=== PATIENT | female | born 2000 | race Caucasian/White ===

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

== ENCOUNTER 2021-06-05 19:44 | Emergency (ER) | payer OTHER, SELFPAY ==
--- NOTE | 2021-06-05 20:22 | RAD REPORT ---
EXAM DESCRIPTION: CT - Head C Spine Mpr Wo Con - 06/05/2021 8:10 pm CLINICAL HISTORY: Head and neck injury status post fall. Head and neck pain COMPARISON: None. TECHNIQUE: Computed axial tomography of the head and cervical spine was obtained. Sagittal and coronal reconstruction was performed. All CT scans are performed using dose optimization technique as appropriate and may include automated exposure control or mA/KV adjustment according to patient size. FINDINGS: An intracranial bleed is not seen. The ventricles are normal in caliber. An extra-axial fl uid collection is not noted.Fluid within the visualized sinuses and mastoids is not seen A cervical fracture is not visualized. No dislocation is noted. IMPRESSION: No acute intracranial abnormality is seen. A cervical fracture is not visualized. If the patient continues to have symptoms to suggest intracra nial /spinal cord pathology then MRI would be recommended
[2021-06-05] MEDS ORDERED: KETOROLAC 30 MG/ML INJ ONE (21:07)
--- NOTE | 2021-06-05 22:08 | EDPHYS ---
Physician Documentation [facility] Name: Florina Hernandez Age: 20 yrs Sex: Female : 2000 Arrival Date: 06/05/2021 Time: 19:47 Bed 4 Private MD: ED Physician Gray Haley HPI: 06/05 20:51 This 20 yrs old Female presents to ER via Wheelchair with complaints of Head Injury jr8 With LOC-Adult. 20:51 The patient or guardian reports a laceration, pain, tenderness. The complaints affect jr8 the right frontal area. Context of injury: The problem was sustained on a street or driveway, resulted from a fall, while running. Onset: The symptoms/episode began/occurred acutely, today. Associated signs and symptoms: Loss of consciousness: This patient experience a loss of consciousness, for 2 minute(s). Severity of symptoms: At their worst the symptoms were moderate, in the emergency department the symptoms have improved, mildly. The patient has not experienced similar symptoms in the past. The patient has not recently seen a physician. Patient stated that she was running around playing with friend. Tripped and fell landing on concrete. + LOC for approximately 2 min per patient and friend at bedside . Historical: - Allergies: 19:58 anesthetics "the gas kind"; sm5 19:58 PROPOFOL; sm5 - PMHx: 19:58 ADD/ADHD; Anxiety; Bipolar disorder; Depression; vaginal bleeding; sm5 - Immunization history: Last tetanus immunization: unknown. - Social history:: Smoking status: Reported history of juuling and/or vaping. ROS: 20:51 Eyes: Negative for injury, pain, redness, and discharge, ENT: Negative for injury, jr8 pain, and discharge, Neck: Negative for injury, pain, and swelling, Cardiovascular: Negative for chest pain, palpitations, and edema, Respiratory: Negative for shortness of breath, cough, wheezing, and pleuritic chest pain, Abdomen/GI: Negative for abdominal pain, nausea, vomiting, diarrhea, and constipation, Back: Negative for injury and pain, MS/Extremity: Negative for injury and deformity. 20:51 Skin: Positive for laceration(s). 20:51 Neuro: Positive for headache, loss of consciousness. Exam: 20:51 Eyes: Pupils equal round and reactive to light, extra-ocular motions intact. Lids and jr8 lashes normal. Conjunctiva and sclera are non-icteric and not injected. Cornea within normal limits. Periorbital areas with no swelling, redness, or edema. ENT: Nares patent. No nasal discharge, no septal abnormalities noted. Tympanic membranes are normal and external auditory canals are clear. Oropharynx with no redness, swelling, or masses, exudates, or evidence of obstruction, uvula midline. Mucous membranes moist. Neck: Trachea midline, no thyromegaly or masses palpated, and no cervical lymphadenopathy. Supple, full range of motion without nuchal rigidity, or vertebral point tenderness. No Meningismus. Cardiovascular: Regular rate and rhythm with a normal S1 and S2. No gallops, murmurs, or rubs. Normal PMI, no JVD. No pulse deficits. Respiratory: Lungs have equal breath sounds bilaterally, clear to auscultation and percussion. No rales, rhonchi or wheezes noted. No increased work of breathing, no retractions or nasal flaring. Abdomen/GI: Soft, non-tender, with normal bowel sounds. No distension or tympany. No guarding or rebound. No evidence of tenderness throughout. Back: No spinal tenderness. No costovertebral tenderness. Full range of motion. Skin: Warm, dry with normal turgor. Normal color with no rashes, no lesions, and no evidence of cellulitis. MS/ Extremity: Pulses equal, no cyanosis. Neurovascular intact. Full, normal range of motion. Neuro: Awake and alert, GCS 15, oriented to person, place, time, and situation. Cranial nerves II-XII grossly intact. Motor strength 5/5 in all extremities. Sensory grossly intact. Cerebellar exam normal. 20:51 Head/face: Noted is hematoma, that is mild, of the right frontal area, a laceration(s), that is superficial, that is linear, of the right frontal area, tenderness, that is moderate, of the right frontal area. Vital Signs: 19:57 BP 133 / 87; Pulse 96; Resp 13; Temp 98.1(TE); Pulse Ox 99% on R/A; Weight 50.35 kg as6 (R); Height 4 ft. 8 in. (142.24 cm) (R); Pain 6/10; 21:04 BP 119 / 96; Pulse 96; Resp 21 S; Pulse Ox 100% on R/A; as6 22:02 BP 116 / 71; Pulse 65; Resp 16 S; Pulse Ox 100% on R/A; as6 19:57 Body Mass Index 24.89 (50.35 kg, 142.24 cm) as6 Jatin Coma Score: 19:58 Eye Response: spontaneous(4). Verbal Response: oriented(5). Motor Response: obeys sm5 commands(6). Total: 15. 20:51 Eye Response: spontaneous(4). Verbal Response: oriented(5). Motor Response: obeys jr8 commands(6). Total: 15. Trauma Score (Adult): 19:58 Eye Response: spontaneous(1); Verbal Response: oriented(1); Motor Response: obeys sm5 commands(2); Systolic BP: > 89 mm Hg(4); Respiratory Rate: 10 to 29 per min(4); Jatin Score: 15; Trauma Score: 12 MDM: 19:56 Patient medically screened. jr8 22:08 Data reviewed: vital signs, nurses notes, radiologic studies, CT scan. Data jr8 interpreted: Pulse oximetry: on room air is 100 %. Interpretation: normal. Counseling: I had a detailed discussion with the patient and/or guardian regarding: the historical points, exam findings, and any diagnostic results supporting the discharge/admit diagnosis, radiology results, the need for outpatient follow up, a family practitioner, to return to the emergency department if symptoms worsen or persist or if there are any questions or concerns that arise at home. 22:08 ED course: Patient doing much better. No signs of concussion at this time. jr8 Hemodynamically stable. No acute findings on CT. Laceration superficial in nature. Wound care instructions given. Patient good with this and will come back if worse . 06/05 19:56 Order name: CT Head C Spine; Complete Time: 20:28 jr8 Administered Medications: 21:08 Drug: Ketorolac 30 mg Route: IM; Site: left ventrogluteal; as6 22:17 Follow up: Response: No adverse reaction; Marked relief of symptoms; Pain is decreased vc1 Disposition: 06/06 00:00 Co-signature as Attending Physician, Gray Haley MD I agree with the assessment and kdr plan of care. Disposition Summary: 06/05/21 22:08 Discharge Ordered Location: Home jr8 Problem: new jr8 Symptoms: have improved jr8 Condition: Stable jr8 Diagnosis - Superficial injury of scalp jr8 Followup: jr8 - With: Private Physician - When: 2 - 3 days - Reason: Wound Recheck, Recheck today's complaints, Continuance of care, Re-evaluation by your physician Discharge Instructions: - Discharge Summary Sheet jr8 - Head Injury, Adult jr8 - Wound Care, Adult jr8 Forms: - Medication Reconciliation Form jr8 - Thank You Letter jr8 - Antibiotic Education jr8 - Prescription Opioid Use jr8 Signatures: Dispatcher [employer] EDMS Gray Haley MD MD kdr Roszak, Josh, PA PA jr8 Gomez Mason RN RN as6 Sherlyn Alanis RN RN sm5 Ofelia Mi RN vc1 Corrections: (The following items were deleted from the chart) 06/05 22:09 20:51 Head/face: Noted is hematoma, that is mild, of the right frontal area, a jr8 laceration(s), that is linear, of the right frontal area, tenderness, that is moderate, of the right frontal area, jr8
--- NOTE | 2021-06-05 22:08 | ER ---
Nurse's Notes [facility] Name: Florina Hernandez Age: 20 yrs Sex: Female : 2000 Arrival Date: 06/05/2021 Time: 19:47 Bed 4 Private MD: Diagnosis: Superficial injury of scalp Presentation: 06/05 19:53 Chief complaint: Patient states: she was playing tag with her cousin, tripped and hit sm5 her head on the concrete, +LOC for 2 mins. denies n/v. pt bleeding from head. Care prior to arrival: None. Mechanism of Injury: Fall from standing position. Trauma event details: Injury occurred: at home. Injury occurred: June 05, 2021. 19:53 Acuity: MAAME 2 5 19:53 Method Of Arrival: Wheelchair [facility] 20:23 Coronavirus screen: At this time, the client does not indicate any symptoms associated as6 with coronavirus-19. Ebola Screen: No symptoms or risks identified at this time. Initial Sepsis Screen: Does the patient meet any 2 criteria? No. Patient's initial sepsis screen is negative. Does the patient have a suspected source of infection? No. Patient's initial sepsis screen is negative. Risk Assessment: Do you want to hurt yourself or someone else? Patient reports no desire to harm self or others. Onset of symptoms was June 05, 2021. Trauma Activation: Physician: ED Physician; Name: Sudha; Notified At: 19:53; Arrived At: Physician: General Surgeon; Name: ; Notified At: 19:53; Arrived At: Physician: Radiology; Name: ; Notified At: 19:53; Arrived At: Physician: Respiratory; Name: ; Notified At: 19:53; Arrived At: Physician: Lab; Name: ; Notified At: 19:53; Arrived At: Historical: - Allergies: 19:58 anesthetics "the gas kind"; sm5 19:58 PROPOFOL; sm5 - PMHx: 19:58 ADD/ADHD; Anxiety; Bipolar disorder; Depression; vaginal bleeding; sm5 - Immunization history: Last tetanus immunization: unknown. - Social history:: Smoking status: Reported history of juuling and/or vaping. Screenin:57 Tuberculosis screening: No symptoms or risk factors identified. sm5 20:23 Abuse screen: Denies threats or abuse. Denies injuries from another. Nutritional as6 screening: No deficits noted. Fall Risk Fall in past 12 months (25 points). Total Cuevas Fall Scale indicates Low Risk Score (25-44 pts). Fall prevention measures have been instituted. Frequent Obs/Assesments occuring As available Patient and Family Educated on Fall Prevention Program and strategies. Primary Survey: 19:56 NO uncontrolled hemorrhage observed. A: The patient is alert. Airway: patent. sm5 Breathing/Chest: Respiratory pattern: regular, Respiratory effort: spontaneous. Circulation: Heart tones present. Pulses: palpable right radial artery, right brachial artery, right femoral artery, right popliteal artery, right posterior tibial artery, left radial artery, left brachial artery, left femoral artery, left popliteal artery, bilateral radial, brachial, femoral, popliteal, posterior tibial, and dorsalis pedis arteries., left carotid pulse and right carotid pulse. Skin color: pink. Disability Alert. Exposure/Environment: All clothing and personal items were removed. There is no evidence of uncontrolled external bleeding. Obvious injury(ies) are noted at this time: dried blood to head and face A warming method has been applied: A warm blanket has been provided to the patient. 20:24 Reassessment Breathing/Chest Respiratory pattern Regular. as6 Assessment: 19:55 General: Appears in no apparent distress. Behavior is cooperative. Pain: Complains of sm5 pain in head. Neuro: Level of Consciousness is awake, alert, obeys commands, Oriented to person, place, time, situation. Cardiovascular: No deficits noted. Capillary refill < 3 seconds Patient's skin is warm and dry. Respiratory: Airway is patent Trachea midline Respiratory effort is even, unlabored. Injury Description: Head injury bleeding, had loss of consciousness. 21:00 Reassessment: Patient and/or family updated on plan of care and expected duration. Pain vc1 level reassessed. Patient is alert, oriented x 3, equal unlabored respirations, skin warm/dry/pink. Neuro: Level of Consciousness is awake, alert, obeys commands, Oriented to person, place, time, situation, Appropriate for age. 22:14 Reassessment: Left before signing discharge paperwork. vc1 Vital Signs: 19:57 BP 133 / 87; Pulse 96; Resp 13; Temp 98.1(TE); Pulse Ox 99% on R/A; Weight 50.35 kg as6 (R); Height 4 ft. 8 in. (142.24 cm) (R); Pain 6/10; 21:04 BP 119 / 96; Pulse 96; Resp 21 S; Pulse Ox 100% on R/A; as6 22:02 BP 116 / 71; Pulse 65; Resp 16 S; Pulse Ox 100% on R/A; as6 19:57 Body Mass Index 24.89 (50.35 kg, 142.24 cm) as6 Jatin Coma Score: 19:58 Eye Response: spontaneous(4). Verbal Response: oriented(5). Motor Response: obeys sm5 commands(6). Total: 15. 20:51 Eye Response: spontaneous(4). Verbal Response: oriented(5). Motor Response: obeys jr8 commands(6). Total: 15. Trauma Score (Adult): 19:58 Eye Response: spontaneous(1); Verbal Response: oriented(1); Motor Response: obeys sm5 commands(2); Systolic BP: > 89 mm Hg(4); Respiratory Rate: 10 to 29 per min(4); Jatin Score: 15; Trauma Score: 12 ED Course: 19:47 Patient arrived in ED. ja2 19:51 Gomez Mason, ANDERS is Primary Nurse. as6 19:52 Gray Haley MD is Attending Physician. kdr 19:55 Triage completed. sm5 19:56 Mckay Harris PA is PHCP. jr8 19:57 Patient has correct armband on for positive identification. Placed in gown. Bed in low sm5 position. Call light in reach. Side rails up X2. monitoring tech on. Pulse ox on. NIBP on. 20:10 CT Head C Spine In Process Unspecified. EDMS 20:23 Patient maintains SpO2 saturation greater than 95% on room air. Thermoregulation: warm as6 blanket given to patient. 21:05 Arm band placed on. as6 22:15 No provider procedures requiring assistance completed. Patient did not have IV access vc1 during this emergency room visit. Administered Medications: 21:08 Drug: Ketorolac 30 mg Route: IM; Site: left ventrogluteal; as6 22:17 Follow up: Response: No adverse reaction; Marked relief of symptoms; Pain is decreased vc1 Outcome: 22:08 Discharge ordered by MD. dominguez 22:15 Discharged to home ambulatory. vc1 22:15 Condition: good 22:15 Discharge instructions given to patient, Patient left before receiving discharge packet 22:16 Patient left the ED. vc1 Signatures: Dispatcher [employer] EDMS Gray Haley MD MD kdr Roszak, Josh, PA PA jr8 Aleena Matute Ashby, ANDERS RN as6 Sherlyn Alanis RN RN sm5 Ofelia Mi RN RN vc1
[2021-06-05 22:55] VITALS: TEMP 98.1
[2021-06-05 23:07] VITALS: O2SAT 100
[2021-06-05 23:08] VITALS: BP 116/71
== END 2021-06-05 22:16 | disposition home or self-care (01) ==
LOC: ER 19:44
DX: S01.01XA Laceration without foreign body of scalp, initial encounter (principal); W01.0XXA Fall on same level from slipping, tripping and stumbling without subsequent striking against object, initial encounter; Y93.02 Activity, running; Z88.4 Allergy status to anesthetic agent
CPT/HCPCS: 70450; 72125; 96372; 99284

== ENCOUNTER 2023-01-06 17:02 | Emergency (ER) | payer OTHER ==
--- OUTSIDE RECORDS SUMMARY | 2023-01-06 17:18 | XMS REPORT | Continuity of Care Document ---
:2000 Author Organization [facility] t Address [address] [facility] [place] [address] Care Team Providers Name Role Phone NAIN DE Primary Care Physician Unavailable EDITH GILES Attending Clinician Unavailable Tisha Edith CALDWELL Attending Clinician [phone] Doctor Unassigned, [place] Attending Clinician Unavailable KAEL SALES Attending Clinician Unavailable KAEL SALES Attending Clinician Unavailable Provider, Supriya Temp Attending Clinician Unavailable Emilee Valerio Attending Clinician Nain Hernandez Attending Clinician Meghna, Tito - Db Attending Clinician Unavailable NAIN DE Attending Clinician Unavailable Annalee Fang MD Attending Clinician Payers Payer Name Policy Type Policy Number Effective Date Expiration Date S ource [place]ICAID [place] [id number] 2022 00:00:00 Problems Condition Condition Condition Status Onset Resolution Last Treating Co mments Source Name Details Category Date Date Treatment Clinician Date Other Other Disease Active 2022- Univers general general 3-24 ity of counseling [place] and advice and advice 00 Me dical for for Branch contracept contracept rodo rodo management management Trichomona Trichomona Disease Active 2021-04 U nivers l l 0-03 ity of vulvovagin vulvovagin 00:[place] itis itis 00 Medical Branch Yeast Yeast Disease Active 2021-04 Univers infection infection 0-03 ity of 00:00: [place] [facility] Bacterial Bacterial Disease Active 2021-04 Uni vers vaginosis vaginosis 0-03 ity of 00:00: [place] [facility] Acute Acute Disease Active 2021-04 Univers cystitis cystitis 0-03 ity of without without 00:00: [place] hematuria hematuria 00 [facility] Branch Anxiety Anxiety Disease Active Univers and and 9 ity of depression depression 00:00: [place] [facility] [place] Hair loss Hair loss Disease Active Uni vers 01-13 ity of 00:00: [place] [facility] BV BV Disease Active Overview: Univer s (bacterial (bacterial 4-03 Formattin ity of vaginosis) vaginosis) 00:00: g of this [place] 00 note Medical might be Branch different from the original. 07/09/18 - s/p Flagyl Oligomenor Oligomenor Disease Active U nivers bam bam 3-25 ity of 00:00: [place] [facility] PCOS PCOS Disease Active Overview: Univer s (polycysti (polycysti 3-25 07/08/18 - ity of c ovarian c ovarian 00:00: DHEA-S [place] syndrome) syndrome) 00 350 Medi marisol mcg/dl Branch (elevated ). FSH 3.5 LH 6.3, free testoster one 18 (normal) and AMH 3.34. Will obtain a 17 OHP and androstei ndione. Repeat DHEA-S in 3 months. Uses oral Uses oral Disease Active Overview: Univers contracept contracept 3-25 Formattin ity of ion ion 00:00: g of this [place] 00 note Medical might be Branch different from the original. 07/08/18 - OCPs started for cycle control and contracep tion. PCOS PCOS Disease Active Overview: Univer s (polycysti (polycysti 3-25 Formattin ity of c ovarian c ovarian 00:00: g of this [place] syndrome) syndrome) 00 note Medi marisol might be Branch different from the original. 07/08/18 - DHEA-S 350 mcg/dl (elevated ). FSH 3.5 LH 6.3, free testoster one 18 (normal) and AMH 3.34. Will obtain a 17 OHP and androstei ndione. Repeat DHEA-S in 3 months. Ingested Ingested Disease Active 2017-04 Overview: Un brianda substance, substance, 0-07 Formattin ity of unknown unknown 00:00: g of this [place] drug, drug, 00 note Medical intentiona intentiona might be Branch l l different self-harm, self-harm, from the initial initial original. encounter encounter Took Zoloft and Nyquil Basic Basic Disease Active Univers learning learning 7-03 ity of disability disability 00:00[place] , , 00 Medical arithmetic arithmetic Br anch Pilonidal Pilonidal Disease Active Uni vers cyst cyst ity of [facility] History of History of Disease Active Overview : Univers early early Formattin ity of menarche menarche g of this [place] as note Medical might be Branch different from the original. Age 9 with symptoms of precociou s puberty Hirsutism Hirsutism Disease Active Uni vers ity of [facility] Depressed Depressed Disease Active Uni vers mood mood ity of [facility] BMI (body BMI (body Disease Active Overview: Univers mass mass Formattin ity of index), index), g of this [place] pediatric, pediatric, note Me dical greater greater might be Branch than or than or different equal to equal to from the 95% for 95% for original. age age truncal obesity Anesthesia Anesthesia Disease Active Overview : Univers complicati complicati Formattin ity of on on g of this [place] note Medical might be Branch different from the original. 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 and was "allergic " to general anesthesi a ADD ADD Disease Active Univers (attention (attention it y of deficit deficit [place] disorder) disorder) [facility] Branch ADD ADD Disease Active Univers (attention (attention it y of deficit deficit [place] disorder) disorder) [facility] Branch Allergies, Adverse Reactions, Alerts Allergy Allergy Status Severity Reaction(s) Onset Inactive Treating Comm ents Source Name Type Date Date Clinician Propofol Propensi Active Anaphylaxis Will nee d Univers ty to 5-16 records ity of adverse 00:00: from [place] reaction 00 [facility] Branch Adriel - but mother reports patient coded during induction at age 18 months and is allergic to and unknown anesthesi a medicatio n for general. Does not think it is malignant hyperther homar but we will request records. PROPOFOL DRUG Active High Anaphylaxis 2017- Uni vers INGREDI 5-16 ity of 00:00: [place] 00 Medical Branch Nitrous Propensi Active Anaphylaxis 0 Un brianda Oxide ty to 10-05 ity of adverse 00:00: [place] reaction 00 Medical s Branch NITROUS DRUG Active Anaphylaxis Univ ers OXIDE INGREDI 10-05 ity of 00:00: [place] 00 Medical Branch Family History Family Member Diagnosis Comments Start Date Stop Date Source Paternal Aunt Heart [facility] Paternal Diabetes [facility] Paternal Other - see [facility] Father Diabetes [facility] Father Neurological University o f [facility] Father Other - see [facility] Maternal ADHD [facility] Mother PCOS (polycystic Universi ty of ovary syndrome) [facility] [place] Mother Thyroid [facility] Other Mental illness [facility] Social History Social Habit Start Date Stop Date Quantity Comments Source History of Cigarette Smoker Universi ty of tobacco use [place] [facility] [place] History SDOH University o f Alcohol Frequency [facility] edical Branch History SDOH University o f Alcohol Std [place] [facility] Drinks Branch History SDOH University o f Alcohol Binge [facility] al Branch Exposure to 2022-08-28 2022-09-07 Not sure University of SARS-CoV-2 00:00:00 09:38:00 [facility] (event) Branch Alcohol intake 2022-01-16 2022-01-16 Current drinker Unive rsity of 00:00:00 00:00:00 of alcohol [facility] (finding) Branch Tobacco Comment 2022-01-13 2022-01-13 social / but used Un iversity of 00:00:00 00:00:00 to smoke everyday [facility] edical Branch Tobacco use and 2022-01-13 2022-01-13 Smokeless tobacco Un iversity of exposure 00:00:00 00:00:00 non-user [facility] Alcohol Comment 2017-08-29 2017-08-29 x1 in 8 grade Univer sity of 00:00:00 00:00:00 only, no recent [facility] ical [place] Sex Assigned At [birth year] Universit y of 00:00:00 00:00:00 [facility] Smoking Status Start Date Stop Date Source Occasional tobacco smoker 2022-01-13 00:[facility] Ordered Filled Start Stop Current Ordering Indication Dosage Frequency Signature Comments Components Source Medication Medication Date Date Medication? Clinician (SIG) Name Name fluconazole 2022- No [id number] 150mg Take 1 Univers (DIFLUCAN) 5-25 05-26 tablet by ity of 150 mg 00:00: 04:59 [place] tablet 00 :00 now for 1 Medical dose. Branch fluconazole 2022- No [id number] 150mg Take 1 Univers (DIFLUCAN) 5-25 05-26 tablet by ity of 150 mg 00:00: 04:59 [place] tablet 00 :00 now for 1 Medical dose. Branch fluconazole 2022- No [id number] 150mg Take 1 Univers (DIFLUCAN) 5-25 05-26 tablet by ity of 150 mg 00:00: 04:59 [place] tablet 00 :00 now for 1 Medical dose. Branch metroNIDAZO Yes [id number] 500mg Take 1 Univers LE 500 mg 3-27 tablet by ity o f tablet 00:00: mouth in [place] [address] the Medical morning Branch and 1 tablet in the evening. metroNIDAZO Yes [id number] 500mg Take 1 Univers LE 500 mg 3-27 tablet by ity o f tablet 00:00: mouth in [place] [address] the Medical morning Branch and 1 tablet in the evening. metroNIDAZO Yes [id number] 500mg Take 1 Univers LE 500 mg 3-27 tablet by ity o f tablet 00:00: mouth in [place] [address] the Medical morning Branch and 1 tablet in the evening. metroNIDAZO Yes [id number] 500mg Take 1 Univers LE 500 mg 3-27 tablet by ity o f tablet 00:00: mouth in [place] [address] the Medical morning Branch and 1 tablet in the evening. metroNIDAZO Yes [id number] 500mg Take 1 Univers LE 500 mg 3-27 tablet by ity o f tablet 00:00: mouth in [place] [address] the Medical morning [place] and 1 tablet in the evening. metroNIDAZO 2022- Yes [id number] 500mg Take 1 Univers LE 500 mg 3-27 tablet by ity o f tablet 00:00: mouth in [place] 00 the Medical morning Branch and 1 tablet in the evening. metroNIDAZO 2022-0 Yes [id number] 500mg Take 1 Univers LE 500 mg 3-27 tablet by ity o f tablet 00:00: mouth in [place] 00 the Medical morning Branch and 1 tablet in the evening. cefTRIAXone 2021-04- No [id number] 500mg Univers (ROCEPHIN) 0-03 10- ity of injection 05:00: 16:59 [place] 500 mg 00 :00 Medical Branch cefTRIAXone 2021-04- No [id number] 500mg Univers (ROCEPHIN) 0-03 10-03 ity of injection 05:00: 16:59 [place] 500 mg 00 :00 Medical Branch cefTRIAXone 2021-04- No [id number] 500mg Univers (ROCEPHIN) 0-03 10-03 ity of injection 05:00: 16:31 [place] 500 mg 00 :49 Medical Branch cefTRIAXone 2021-04- No [id number] 500mg Univers (ROCEPHIN) 0-03 10- ity of injection 05:00: 16:31 [place] 500 mg 00 :49 Medical Branch cefTRIAXone 2021-04- No [id number] 500mg Univers (ROCEPHIN) 0-03 10-03 ity of injection 05:00: 16:31 [place] 500 mg 00 :49 Medical Branch cefTRIAXone 2021-04- No [id number] 500mg Univers (ROCEPHIN) 0-03 10-03 ity of injection 05:00: 16:31 [place] 500 mg 00 :49 Medical Branch ampicillin 2021-04- No [id number] 500mg Take 1 Univers 500 mg 0-03 10-11 capsule by ity of capsule 00:00: 04:59 mouth [place] 00 :00 every 6 Medical (six) Branch hours for 7 days. ampicillin 2021-04- No [id number] 500mg Take 1 Univers 500 mg 0-03 10-11 capsule by ity of capsule 00:00: 04:59 mouth [place] 00 :00 every 6 Medical (six) Branch hours for 7 days. ampicillin 2021-04- No [id number] 500mg Take 1 Univers 500 mg 0-03 10-11 capsule by ity of capsule 00:00: 04:59 mouth [place] 00 :00 every 6 Medical (six) Branch hours for 7 days. ampicillin 2021-04- No [id number] 500mg Take 1 Univers 500 mg 0-03 10-11 capsule by ity of capsule 00:00: 04:59 mouth [place] 00 :00 every 6 Medical (six) Branch hours for 7 days. fluconazole 2021-04- No [id number] 150mg Take 1 Univers 150 mg 0-03 10-04 tablet by ity of tablet 00:00: 04:59 [place] 00 :00 now for 1 Medical dose. Branch fluconazole 2021-04- No [id number] 150mg Take 1 Univers 150 mg 0-03 10-04 tablet by ity of tablet 00:00: 04:59 [place] 00 :00 now for 1 Medical dose. Branch fluconazole 2021-04- No [id number] 150mg Take 1 Univers 150 mg 0-03 10-04 tablet by ity of tablet 00:00: 04:59 [place] 00 :00 now for 1 Medical dose. Branch fluconazole 2021-04- No [id number] 150mg Take 1 Univers 150 mg 0-03 10-04 tablet by ity of tablet 00:00: 04:59 [place] 00 :00 now for 1 Medical dose. Branch doxycycline 2021- No [id number] 100mg Take 1 Univers hyclate 100 9-30 10-15 tablet by it y of mg tablet 00:00: 04:59 mouth in [place] 00 :00 the Medical morning Branch and 1 tablet in the evening. Do all this for 14 days. metroNIDAZO 2021- No [id number] 500mg Take 1 Univers LE 500 mg 9-30 10-15 tablet by ity of tablet 00:00: 04:59 mouth in [place] 00 :00 the Medical morning Branch and 1 tablet in the evening. Do all this for 14 days. doxycycline 2021- No [id number] 100mg Take 1 Univers hyclate 100 9-30 10-15 tablet by it y of mg tablet 00:00: 04:59 mouth in [place] 00 :00 the Medical morning Branch and 1 tablet in the evening. Do all this for 14 days. metroNIDAZO 2021- No [id number] 500mg Take 1 Univers LE 500 mg 9-30 10-15 tablet by ity of tablet 00:00: 04:59 mouth in [place] 00 :00 the Medical morning Branch and 1 tablet in the evening. Do all this for 14 days. metroNIDAZO 2021- No [id number] 500mg Take 1 Univers LE 500 mg 9-30 10-15 tablet by ity of tablet 00:00: 04:59 mouth in [place] 00 :00 the Medical morning Branch and 1 tablet in the evening. Do all this for 14 days. metroNIDAZO 2021-2021- No [id number] 500mg Take 1 Univers LE 500 mg 9-30 10-15 tablet by ity of tablet 00:00: 04:59 mouth in [place] 00 :00 the Medical morning Branch and 1 tablet in the evening. Do all this for 14 days. metroNIDAZO 2021-2021- No [id number] 500mg Take 1 Univers LE 500 mg 9-30 10-15 tablet by ity of tablet 00:00: 04:59 mouth in [place] 00 :00 the Medical morning Branch and 1 tablet in the evening. Do all this for 14 days. metroNIDAZO 2021-2021- No [id number] 500mg Take 1 Univers LE 500 mg 9-30 10-15 tablet by ity of tablet 00:00: 04:59 mouth in [place] 00 :00 the Medical morning Branch and 1 tablet in the evening. Do all this for 14 days. doxycycline 2021-2021- No [id number] 100mg Take 1 Univers hyclate 100 9-30 10-03 tablet by it y of mg tablet 00:00: 00:00 mouth in [place] 00 :00 the Medical morning Branch and 1 tablet in the evening. Do all this for 14 days. doxycycline 2021-2021- No [id number] 100mg Take 1 Univers hyclate 100 9-30 10-03 tablet by it y of mg tablet 00:00: 00:00 mouth in [place] 00 :00 the Medical morning Branch and 1 tablet in the evening. Do all this for 14 days. doxycycline 2021-2021- No [id number] 100mg Take 1 Univers hyclate 100 9-30 10-03 tablet by it y of mg tablet 00:00: 00:00 mouth in [place] 00 :00 the Medical morning Branch and 1 tablet in the evening. Do all this for 14 days. doxycycline 2021-0 2022- No [id number] 100mg Take 1 Univers hyclate 100 9-30 10-03 tablet by it y of mg tablet 00:00: 00:00 mouth in [place] 00 :00 the Medical morning Branch and 1 tablet in the evening. Do all this for 14 days. lisdexamfet 2019-0 Yes [id number] 40mg Take 1 Univers amine 40 mg 9-23 capsule by it y of capsule 00:00: mouth [place] 00 every Medical morning. Branch lisdexamfet 2019-0 Yes [id number] 40mg Take 1 Univers amine 40 mg 9-23 capsule by it y of capsule 00:00: mouth [place] 00 every Medical morning. Branch lisdexamfet 2019-0 Yes [id number] 40mg Take 1 Univers amine 40 mg 9-23 capsule by it y of capsule 00:00: mouth [place] 00 every Medical morning. Branch lisdexamfet 2018-0 Yes [id number] 40mg Take 1 Univers amine 40 mg 9-23 capsule by it y of capsule 00:00: mouth [place] 00 every Medical morning. Branch lisdexamfet 2018-0 Yes [id number] 40mg Take 1 Univers amine 40 mg 9-23 capsule by it y of capsule 00:00: mouth [place] 00 every Medical morning. Branch lisdexamfet 2018-0 Yes [id number] 40mg Take 1 Univers amine 40 mg 9-23 capsule by it y of capsule 00:00: mouth [place] 00 every Medical morning. Branch lisdexamfet 2019-0 Yes [id number] 40mg Take 1 Univers amine 40 mg 9-23 capsule by it y of capsule 00:00: mouth [place] 00 every Medical morning. Branch lisdexamfet 2019-0 Yes [id number] 40mg Take 1 Univers amine 40 mg 9-23 capsule by it y of capsule 00:00: mouth [place] 00 every Medical morning. Branch lisdexamfet 2019-0 Yes [id number] 40mg Take 1 Univers amine 40 mg 9-23 capsule by it y of capsule 00:00: mouth [place] 00 every Medical morning. Branch lisdexamfet 2019-0 Yes [id number] 40mg Take 1 Univers amine 40 mg 9-23 capsule by it y of capsule 00:00: mouth [place] 00 every Medical morning. Branch lisdexamfet 2019-0 Yes [id number] 40mg Take 1 Univers amine 40 mg 9-23 capsule by it y of capsule 00:00: mouth [place] 00 every Medical morning. Branch lisdexamfet 2019-0 Yes [id number] 40mg Take 1 Univers amine 40 mg 9-23 capsule by it y of capsule 00:00: mouth [place] 00 every Medical morning. Branch lisdexamfet 2019-0 Yes [id number] 40mg Take 1 Univers amine 40 mg 9-23 capsule by it y of capsule 00:00: mouth [place] 00 every Medical morning. Branch lisdexamfet 2019-0 Yes [id number] 40mg Take 1 Univers amine 40 mg 9-23 capsule by it y of capsule 00:00: mouth [place] 00 every Medical morning. Branch lisdexamfet 2019-0 Yes [id number] 40mg Take 1 Univers amine 40 mg 9-23 capsule by it y of capsule 00:00: mouth [place] 00 every Medical morning. Branch lisdexamfet 2019-0 Yes [id number] 40mg Take 1 Univers amine 40 mg 9-23 capsule by it y of capsule 00:00: mouth [place] 00 every Medical morning. Branch lisdexamfet 2019-0 Yes [id number] 40mg Take 1 Univers amine 40 mg 9-23 capsule by it y of capsule 00:00: mouth [place] 00 every Medical morning. Branch lisdexamfet 2019-0 Yes [id number] 40mg Take 1 Univers amine 40 mg 9-23 capsule by it y of capsule 00:00: mouth [place] 00 every Medical morning. Branch lisdexamfet 2019-0 Yes [id number] 40mg Take 1 Univers amine 40 mg 9-23 capsule by it y of capsule 00:00: mouth [place] 00 every Medical morning. Branch lisdexamfet 2019-0 Yes [id number] 40mg Take 1 Univers amine 40 mg 9-23 capsule by it y of capsule 00:00: mouth [place] 00 every Medical morning. Branch lisdexamfet 2019-0 Yes [id number] 40mg Take 1 Univers amine 40 mg 9-23 capsule by it y of capsule 00:00: mouth [place] 00 every Medical morning. Branch lisdexamfet 2019-0 Yes [id number] 40mg Take 1 Univers amine 40 mg 9-23 capsule by it y of capsule 00:00: mouth [place] 00 every Medical morning. Branch lisdexamfet 2019-0 Yes [id number] 40mg Take 1 Univers amine 40 mg 9-23 capsule by it y of capsule 00:00: mouth [place] 00 every Medical morning. Branch lisdexamfet 2018-0 Yes [id number] 40mg Take 1 Univers amine 40 mg 9-23 capsule by it y of capsule 00:00: mouth [place] 00 every Medical morning. Branch lisdexamfet 2018-0 Yes [id number] 40mg Take 1 Univers amine 40 mg 9-23 capsule by it y of capsule 00:00: mouth [place] 00 every Medical morning. Branch lisdexamfet 2018-0 Yes [id number] 40mg Take 1 Univers amine 40 mg 9-23 capsule by it y of capsule 00:00: mouth [place] 00 every Medical morning. Branch lisdexamfet Yes [id number] 40mg Take 1 Univers amine 40 mg 9-23 capsule by it y of capsule 00:00: mouth [place] 00 every Medical morning. Branch lisdexamfet Yes [id number] 40mg Take 1 Univers amine 40 mg 9-20 capsule by it y of capsule 00:00: mouth [place] 00 every Medical morning. Branch albuterol 2017-04 Yes [id number] 2{puff} Inhale 2 Univers 90 1-05 Puffs ity of mcg/actuati 00:00: every 4 [place] as on inhaler 00 (four) Medical hours as Branch needed for Wheezing or Shortness of Breath (or cough). albuterol 2017-04 Yes [id number] 2{puff} Inhale 2 Univers 90 1-05 Puffs ity of mcg/actuati 00:00: every 4 [place] on inhaler 00 (four) Medical hours as Branch needed for Wheezing or Shortness of Breath (or cough). albuterol 2017-04 Yes [id number] 2{puff} Inhale 2 Univers 90 1-05 Puffs ity of mcg/actuati 00:00: every 4 [place] as on inhaler 00 (four) Medical hours as Branch needed for Wheezing or Shortness of Breath (or cough). albuterol 2017-04 Yes [id number] 2{puff} Inhale 2 Univers 90 1-05 Puffs ity of mcg/actuati 00:00: every 4 [place] on inhaler 00 (four) Medical hours as Branch needed for Wheezing or Shortness of Breath (or cough). albuterol 2017-04 Yes [id number] 2{puff} Inhale 2 Univers 90 1-05 Puffs ity of mcg/actuati 00:00: every 4 [place] on inhaler 00 (four) Medical hours as Branch needed for Wheezing or Shortness of Breath (or cough). albuterol 2017-04 Yes [id number] 2{puff} Inhale 2 Univers 90 1-05 Puffs ity of mcg/actuati 00:00: every 4 [place] on inhaler 00 (four) Medical hours as Branch needed for Wheezing or Shortness of Breath (or cough). albuterol 2017-04 Yes [id number] 2{puff} Inhale 2 Univers 90 1-05 Puffs ity of mcg/actuati 00:00: every 4 [place] on inhaler 00 (four) Medical hours as Branch needed for Wheezing or Shortness of Breath (or cough). albuterol 2017-04 Yes [id number] 2{puff} Inhale 2 Univers 90 1-05 Puffs ity of mcg/actuati 00:00: every 4 [place] on inhaler 00 (four) Medical hours as Branch needed for Wheezing or Shortness of Breath (or cough). albuterol 2017-04 Yes [id number] 2{puff} Inhale 2 Univers 90 1-05 Puffs ity of mcg/actuati 00:00: every 4 [place] on inhaler 00 (four) Medical hours as Branch needed for Wheezing or Shortness of Breath (or cough). albuterol 2017-04 Yes [id number] 2{puff} Inhale 2 Univers 90 1-05 Puffs ity of mcg/actuati 00:00: every 4 [place] on inhaler 00 (four) Medical hours as Branch needed for Wheezing or Shortness of Breath (or cough). albuterol 2017-04 Yes [id number] 2{puff} Inhale 2 Univers 90 1-05 Puffs ity of mcg/actuati 00:00: every 4 [place] on inhaler 00 (four) Medical hours as Branch needed for Wheezing or Shortness of Breath (or cough). albuterol 2017-04 Yes [id number] 2{puff} Inhale 2 Univers 90 1-05 Puffs ity of mcg/actuati 00:00: every 4 [place] on inhaler 00 (four) Medical hours as Branch needed for Wheezing or Shortness of Breath (or cough). albuterol 2017-04 Yes [id number] 2{puff} Inhale 2 Univers 90 1-05 Puffs ity of mcg/actuati 00:00: every 4 [place] on inhaler 00 (four) Medical hours as Branch needed for Wheezing or Shortness of Breath (or cough). albuterol 2017-04 Yes [id number] 2{puff} Inhale 2 Univers 90 1-05 Puffs ity of mcg/actuati 00:00: every 4 [place] on inhaler 00 (four) Medical hours as Branch needed for Wheezing or Shortness of Breath (or cough). albuterol 2017-04 Yes [id number] 2{puff} Inhale 2 Univers 90 1-05 Puffs ity of mcg/actuati 00:00: every 4 [place] on inhaler 00 (four) Medical hours as Branch needed for Wheezing or Shortness of Breath (or cough). albuterol 2017-04 Yes [id number] 2{puff} Inhale 2 Univers 90 1-05 Puffs ity of mcg/actuati 00:00: every 4 [place] on inhaler 00 (four) Medical hours as Branch needed for Wheezing or Shortness of Breath (or cough). albuterol 2017-04 Yes [id number] 2{puff} Inhale 2 Univers 90 1-05 Puffs ity of mcg/actuati 00:00: every 4 [place] on inhaler 00 (four) Medical hours as Branch needed for Wheezing or Shortness of Breath (or cough). albuterol 2017-04 Yes [id number] 2{puff} Inhale 2 Univers 90 1-05 Puffs ity of mcg/actuati 00:00: every 4 [place] on inhaler 00 (four) Medical hours as Branch needed for Wheezing or Shortness of Breath (or cough). albuterol 2017-04 Yes [id number] 2{puff} Inhale 2 Univers 90 1-05 Puffs ity of mcg/actuati 00:00: every 4 [place] on inhaler 00 (four) Medical hours as Branch needed for Wheezing or Shortness of Breath (or cough). albuterol 2017-04 Yes [id number] 2{puff} Inhale 2 Univers 90 1-05 Puffs ity of mcg/actuati 00:00: every 4 [place] on inhaler 00 (four) Medical hours as Branch needed for Wheezing or Shortness of Breath (or cough). albuterol 2017-04 Yes [id number] 2{puff} Inhale 2 Univers 90 1-05 Puffs ity of mcg/actuati 00:00: every 4 [place] on inhaler 00 (four) Medical hours as Branch needed for Wheezing or Shortness of Breath (or cough). albuterol 2017-04 Yes [id number] 2{puff} Inhale 2 Univers 90 1-05 Puffs ity of mcg/actuati 00:00: every 4 [place] on inhaler 00 (four) Medical hours as Branch needed for Wheezing or Shortness of Breath (or cough). albuterol 2017-04 Yes [id number] 2{puff} Inhale 2 Univers 90 1-05 Puffs ity of mcg/actuati 00:00: every 4 [place] on inhaler 00 (four) Medical hours as Branch needed for Wheezing or Shortness of Breath (or cough). albuterol 2017-04 Yes [id number] 2{puff} Inhale 2 Univers 90 1-05 Puffs ity of mcg/actuati 00:00: every 4 [place] as on inhaler 00 (four) Medical hours as Branch needed for Wheezing or Shortness of Breath (or cough). albuterol 2017-04 Yes [id number] 2{puff} Inhale 2 Univers 90 1-05 Puffs ity of mcg/actuati 00:00: every 4 [place] as on inhaler 00 (four) Medical hours as Branch needed for Wheezing or Shortness of Breath (or cough). albuterol 2017-04 Yes [id number] 2{puff} Inhale 2 Univers 90 1-05 Puffs ity of mcg/actuati 00:00: every 4 [place] as on inhaler 00 (four) Medical hours as Branch needed for Wheezing or Shortness of Breath (or cough). albuterol 2017-04 Yes [id number] 2{puff} Inhale 2 Univers 90 1-05 Puffs ity of mcg/actuati 00:00: every 4 [place] as on inhaler 00 (four) Medical hours as Branch needed for Wheezing or Shortness of Breath (or cough). albuterol 2017-04 Yes [id number] 2{puff} Inhale 2 Univers 90 1-05 Puffs ity of mcg/actuati 00:00: every 4 [place] as on inhaler 00 (four) Medical hours as Branch needed for Wheezing or Shortness of Breath (or cough). albuterol 2017-04 Yes [id number] 2{puff} Inhale 2 Univers 90 1-05 Puffs ity of mcg/actuati 00:00: every 4 [place] as on inhaler 00 (four) Medical hours as Branch needed for Wheezing or Shortness of Breath (or cough). Vital Signs Vital Name Observation Time Observation Value Comments Source Systolic blood 2022-09-07 14:38:00 115 mm[Hg] Univer sity of [facility] Diastolic blood 2022-09-07 14:38:00 71 mm[Hg] [facility] Heart rate 2022-09-07 14:38:00 66 /min Universi ty [facility] Body temperature 2022-09-07 14:38:00 35.78 Reina [facility] 2022-09-07 14:38:00 18 /min [facility] Body height 2022-09-07 14:38:00 142.2 cm Universi ty [facility] Body weight 2022-09-07 14:38:00 47.446 kg Universi ty [facility] BMI 2022-09-07 14:38:00 23.45 kg/m2 Universi ty [facility] Systolic blood 2022-07-07 15:06:00 124 mm[Hg] Univer sity of [facility] Diastolic blood 2022-07-07 15:06:00 87 mm[Hg] Unive rsity of [facility] Heart rate 2022-07-07 15:06:00 73 /min Universi ty [facility] Body temperature 2022-07-07 15:06:00 35.44 [facility]ina [facility] 2022-07-07 15:06:00 18 /min [facility] Body height 2022-07-07 15:06:00 142.2 cm Universi ty [facility] Body weight 2022-07-07 15:06:00 46.584 kg Universi ty [facility] BMI 2022-07-07 15:06:00 23.02 kg/m2 [facility]i ty [facility] Systolic blood 2022-01-16 15:48:00 117 mm[Hg] Univer sity of [facility] Diastolic blood 2022-01-16 15:48:00 70 mm[Hg] Unive rsity of [facility] Heart rate 2022-01-16 15:48:00 57 /min Universi ty [facility] Body temperature 2022-01-16 15:48:00 36.22 Reina Univ ers[facility] Respiratory rate 2022-01-16 15:48:00 18 /min Univ ers[facility] Body height 2022-01-16 15:48:00 142.2 cm [facility]i [facility] Body weight 2022-01-16 15:48:00 46.834 kg [facility] BMI 2022-01-16 15:48:00 23.15 kg/m2 [facility] Systolic blood 2022-01-13 15:55:00 125 mm[Hg] Univer [facility]ity [facility] Diastolic blood 2022-01-13 15:55:00 85 mm[Hg] Unive rsity of [facility] Heart rate 2022-01-13 15:51:00 87 /min [facility]i [facility] Body temperature 2022-01-13 15:51:00 36.22 Reina Univ ers[facility] Respiratory rate 2022-01-13 15:51:00 18 /min Univ ers[facility] Body height 2022-01-13 15:51:00 142.2 cm Universi ty [facility] Body weight 2022-01-13 15:51:00 47.854 kg [facility]i [facility] BMI 2022-01-13 15:51:00 23.65 kg/m2 [facility] [place] [facility] Systolic blood 2022-01-13 14:22:00 116 mm[Hg] Univer sity of [facility] Diastolic blood 2022-01-13 14:22:00 79 mm[Hg] Unive rsity of [facility] Heart rate 2022-01-13 14:22:00 64 /min Universi ty [facility] Body height 2022-01-13 14:22:00 142.2 cm [facility] [place] [facility] [place] Body weight 2022-01-13 14:22:00 47.628 kg Universi ty of [facility] BMI 2022-01-13 14:22:00 23.54 kg/m2 Universi ty of [facility] Oxygen saturation in 2022-01-13 14:22:00 100 /min University of Arterial blood by [facility] Pulse oximetry Branch Heart rate 2019-01-03 20:01:00 56 /min Universi ty of [facility] Systolic blood 2019-01-03 19:56:00 114 mm[Hg] Univer sity of [facility] Diastolic blood 2019-01-03 19:56:00 55 mm[Hg] [facility] Respiratory rate 2019-01-03 19:56:00 18 /min [facility] Body height 2019-01-03 19:56:00 143.5 cm Universi ty of [facility] Body weight 2019-01-03 19:56:00 60.555 kg [facility]i [facility] BMI 2019-01-03 19:56:00 29.40 kg/m2 Universi ty of [facility] Body temperature 2018-09-13 14:50:00 36.39 Reina [facility] Oxygen saturation in 2018-09-13 14:50:00 99 /min University of Arterial blood by [facility] Pulse oximetry Branch Procedures Procedure Date / Time Performed Performing Clinician Gilda shook POCT TEST 2022-07-07 15:09:00 Edith Giles [facility] PATIENT FINANCIAL 2022-07-07 14:29:42 Doctor Unassigned, No [facility] POLICY Name [facility] POCT URINALYSIS W/O 2022-01-13 19:07:00 Kael Sales [facility] SPECIFIC GRAVITY [facility] POCT TEST 2022-01-13 19:06:00 Kael Sales [facility] POCT TEST 2022-01-13 18:59:00 Kael Sales [facility] POCT URINALYSIS W/O 2022-01-13 18:58:[address] [facility] SPECIFIC GRAVITY [facility] ASSIGNMENT OF BENEFITS 2022-01-13 14:05:14 Doctor Unassigned, No [facility] Encounters Start End Encounter Admission Attending Care Care Encounter Source Date/Time Date/Time Type Type Clinicians Facility Department ID 2023-01-08 2023-01-08 Outpatient R TISHA [facility] [id number] Univers 09:30:00 09:30:00 EDITH guzman kurt [facility] 2022-10-27 2022-10-27 Outpatient SFA [facility] [id number] Demetirs 18:21:25 18:21:25 [id number] F Thierry 2022-09-11 2022-09-11 [facility] [id number] Univers 00:00:00 00:00:00 Edith Ruiz [employer] [id number] ity of [facility] [id number] [place] as MATERNAL [phone] [facility] ical & CHILD [address] [place] [address] 2022-09-07 2022-09-07 Outpatient R TISHA, [facility] [id number] Univers 08:45:00 10:07:39 EDITH guzman kurt [facility] 2022-09-07 2022-09-07 Office [facility] [id number] Univers 08:45:00 10:07:39 Visit Edith Ruiz [employer] [id number] ity of [facility] [id number] [place] as MATERNAL [phone] [facility] [address] [place] [address] 2022-09-06 2022-09-06 Telephone [facility] [id number] Univers 00:00:00 00:00:00 Edith C [employer] [id number] ity of [facility] [id number] [place] as MATERNAL [phone] [facility] [address] [place] [address] 2022-07-10 2022-07-10 [facility] [id number] Univers 00:00:00 00:00:00 Edith Ruiz [employer] [id number] ity of [facility] [id number] [place] as MATERNAL [phone] [facility] ical & CHILD [address] [place] [address] 2022-07-07 2022-07-07 Outpatient R TISHA, [facility] [id number] Univers 09:30:00 10:29:23 EDITH princey o [facility] 2022-07-07 2022-07-07 Office Tisha [facility] [id number] Univers 09:30:00 10:29:23 Visit Edith Ruiz [employer] [id number] ity of [facility] [id number] [place] as MATERNAL [phone] [facility] & [address] 2022-07-07 2022-07-07 Orders Doctor NESBITT [id number] Univers 00:00:00 00:00:00 Only Unassigned, SOFI [id number] ity of [place] [facility] [id number] [place] as [phone] [address] 2022-05-31 2022-05-31 Outpatient SFA [facility] [id number] Demetris 15:56:14 15:56:14 [id number] F Russell 2022-04-14 2022-04-14 Outpatient R AKINANGELICA, [facility] [id number] Univers 13:30:00 13:30:00 EDITH nikiy o [facility] 2022-01-16 2022-01-16 Outpatient R AKINSIYARIEL [facility] [id number] Univers 13:15:00 13:15:00 EDITH princey o [facility] 2022-01-16 2022-01-16 Outpatient R KAEL SALES [facility] [id number] Univers 10:00:00 11:52:54 KAEL SALES [facility] 2022-01-16 2022-01-16 Office Provider, Kevinchbalwinder [facility] [id number] .[id number] Univers 10:00:00 11:52:54 Visit Edith Giles [employer] 350.1.13. 10 ity of Emilee Tapia [facility] [id number] [place] JosefinapalmerKael aparicio MATERNAL [phone] Medical & CHILD [address] [place] [address] 2022-01-13 2022-01-13 Office Provider, Supriya Acosta [facility] [id number] [facility] 10:00:00 12:12:46 Visit NafisaKael heart [employer] [id number] ity of [facility] [id number] [place] as MATERNAL [phone] Med ical & CHILD [address] [place] [address] 2022-01-13 2022-01-13 Outpatient R JUAN KAEL [facility] [id number] [facility] 10:00:00 12:12:46 KAEL SALES ity [facility] 2022-01-13 2022-01-13 Office Elle [facility] [id number] 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 - Db [facility] [id number] Univers 09:45:00 10:00:00 Visit Elle Nain [facility] [id number] ity of [place] [id number] [place] as ADRY?BLEA [phone] La osiris [facility] [address] [facility] 2022-01-13 2022-01-13 Orders Doctor NESBITT [id number] Univers 00:00:00 00:00:00 Only Unassigned, SOFI [id number] ity of [place] [facility] [id number] [place] as [phone] [address] 2021-10-11 2021-10-11 Outpatient R TISHA [facility] [id number] Univers 13:30:00 13:30:00 EDITH owens o f [facility] 2019-06-17 2019-06-17 Telephone [facility] [id number] Univers 00:00:00 00:00:00 Annalee De La Paz [id number] ity danielle Sharma [id number] Claire Morel [id number] La dical nal 225 [facility] Results Test Description Test Time Test Comments Results Result Comments Source POCT TEST 2022-07-07 15:09:00 Test Item Value Reference Range Interpretation Comme nts POCT PREG (test code = 1605) Negative On board controls acceptable with C Line (test code = 3574) Yes POCT PREG LOT # (test code = 3575) POCT PREG TEST DATE (test code = 3576) [id number] 15:09:00 Test Item Value Reference Range Interpretation Comments POCT PREG (test code = 1605) Negative On board controls acceptable with C Yes Line (test code = 3574) POCT PREG LOT # (test code = 3575) POCT PREG TEST DATE (test code = 3576) [facility]/O SPECIFIC [id number] 19:07:00 Test Item Value Reference Range Interpretation Comments POCT PH U (test code = 3254) 8 mg/dl 5-8 POCT U LEUK EST (test code = Trace Negative - Negative 3263) POCT U NIT (test code = 3262) Neg Negative - Negative POCT U PROT (test code = 3259) Trace Negative - Negative POCT U GLU (test code = 3256) Neg Negative - Negative POCT U KETONE (test code = 3258) None Negative - Negative POCT U BLD (test code = 3257) Trace Negative - Negative [facility] [id number] 19:07:00 Test Item Value Reference Range Interpretation Comments POCT PH U (test code = 3254) 8 mg/dl 5-8 POCT U LEUK EST (test code = Trace Negative - Negative 3263) POCT U NIT (test code = 3262) Neg Negative - Negative POCT U PROT (test code = 3259) Trace Negative - Negative POCT U GLU (test code = 3256) Neg Negative - Negative POCT U KETONE (test code = 3258) None Negative - Negative POCT U BLD (test code = 3257) Trace Negative - Negative [facility] URINALYSIS W/O SPECIFIC [id number] 19:07:00 Test Item Value Reference Range Interpretation Comments POCT PH U (test code = 3254) 8 mg/dl 5-8 POCT U LEUK EST (test code = Trace Negative - Negative 3263) POCT U NIT (test code = 3262) Neg Negative - Negative POCT U PROT (test code = 3259) Trace Negative - Negative POCT U GLU (test code = 3256) Neg Negative - Negative POCT U KETONE (test code = 3258) None Negative - Negative POCT U BLD (test code = 3257) Trace Negative - Negative [facility] URINALYSIS W/O SPECIFIC [id number] 19:07:00 Test Item Value Reference Range Interpretation Comments POCT PH U (test code = 3254) 8 mg/dl 5-8 POCT U LEUK EST (test code = Trace Negative - Negative 3263) POCT U NIT (test code = 3262) Neg Negative - Negative POCT U PROT (test code = 3259) Trace Negative - Negative POCT U GLU (test code = 3256) Neg Negative - Negative POCT U KETONE (test code = 3258) None Negative - Negative POCT U BLD (test code = 3257) Trace Negative - Negative [facility] URINALYSIS W/O SPECIFIC [id number] 19:07:00 Test Item Value Reference Range Interpretation Comments POCT PH U (test code = 3254) 8 mg/dl 5-8 POCT U LEUK EST (test code = Trace Negative - Negative 3263) POCT U NIT (test code = 3262) Neg Negative - Negative POCT U PROT (test code = 3259) Trace Negative - Negative POCT U GLU (test code = 3256) Neg Negative - Negative POCT U KETONE (test code = 3258) None Negative - Negative POCT U BLD (test code = 3257) Trace Negative - Negative [facility] URINALYSIS W/O SPECIFIC [id number] 19:07:00 Test Item Value Reference Range Interpretation Comments POCT PH U (test code = 3254) 8 mg/dl 5-8 POCT U LEUK EST (test code = Trace Negative - Negative 3263) POCT U NIT (test code = 3262) Neg Negative - Negative POCT U PROT (test code = 3259) Trace Negative - Negative POCT U GLU (test code = 3256) Neg Negative - Negative POCT U KETONE (test code = 3258) None Negative - Negative POCT U BLD (test code = 3257) Trace Negative - Negative [facility] URINALYSIS W/O SPECIFIC [id number] 19:07:00 Test Item Value Reference Range Interpretation Comments POCT PH U (test code = 3254) 8 mg/dl 5-8 POCT U LEUK EST (test code = Trace Negative - Negative 3263) POCT U NIT (test code = 3262) Neg Negative - Negative POCT U PROT (test code = 3259) Trace Negative - Negative POCT U GLU (test code = 3256) Neg Negative - Negative POCT U KETONE (test code = 3258) None Negative - Negative POCT U BLD (test code = 3257) Trace Negative - Negative [facility] [id number] 19:06:00 Test Item Value Reference Range Interpretation Comments POCT PREG (test code = 1605) Negative On board controls acceptable with C Yes Line (test code = 3574) POCT PREG LOT # (test code = 3575) POCT PREG TEST DATE (test code = 3576) [facility] [id number] 19:06:00 Test Item Value Reference Range Interpretation Comments POCT PREG (test code = 1605) Negative On board controls acceptable with C Yes Line (test code = 3574) POCT PREG LOT # (test code = 3575) POCT PREG TEST DATE (test code = 3576) [facility] [id number] 19:06:00 Test Item Value Reference Range Interpretation Comments POCT PREG (test code = 1605) Negative On board controls acceptable with C Yes Line (test code = 3574) POCT PREG LOT # (test code = 3575) POCT PREG TEST DATE (test code = 3576) [facility] [id number] 19:06:00 Test Item Value Reference Range Interpretation Comments POCT PREG (test code = 1605) Negative On board controls acceptable with C Yes Line (test code = 3574) POCT PREG LOT # (test code = 3575) POCT PREG TEST DATE (test code = 3576) [facility] [id number] 19:06:00 Test Item Value Reference Range Interpretation Comments POCT PREG (test code = 1605) Negative On board controls acceptable with C Yes Line (test code = 3574) POCT PREG LOT # (test code = 3575) POCT PREG TEST DATE (test code = 3576) [facility] [id number] 19:06:00 Test Item Value Reference Range Interpretation Comments POCT PREG (test code = 1605) Negative On board controls acceptable with C Yes Line (test code = 3574) POCT PREG LOT # (test code = 3575) POCT PREG TEST DATE (test code = 3576) [facility] [id number] 19:06:00 Test Item Value Reference Range Interpretation Comments POCT PREG (test code = 1605) Negative On board controls acceptable with C Yes Line (test code = 3574) POCT PREG LOT # (test code = 3575) POCT PREG TEST DATE (test code = 3576) [facility] [id number] 18:59:00 Test Item Value Reference Range Interpretation Comments POCT PREG (test code = 1605) Negative On board controls acceptable with C Yes Line (test code = 3574) POCT PREG LOT # (test code = 3575) POCT PREG TEST DATE (test code = 3576) [facility] [id number] 18:59:00 Test Item Value Reference Range Interpretation Comments POCT PREG (test code = 1605) Negative On board controls acceptable with C Yes Line (test code = 3574) POCT PREG LOT # (test code = 3575) POCT PREG TEST DATE (test code = 3576) [facility] [id number] 18:59:00 Test Item Value Reference Range Interpretation Comments POCT PREG (test code = 1605) Negative On board controls acceptable with C Yes Line (test code = 3574) POCT PREG LOT # (test code = 3575) POCT PREG TEST DATE (test code = 3576) [facility] [id number] 18:59:00 Test Item Value Reference Range Interpretation Comments POCT PREG (test code = 1605) Negative On board controls acceptable with C Yes Line (test code = 3574) POCT PREG LOT # (test code = 3575) POCT PREG TEST DATE (test code = 3576) [facility] [id number] 18:59:00 Test Item Value Reference Range Interpretation Comments POCT PREG (test code = 1605) Negative On board controls acceptable with C Yes Line (test code = 3574) POCT PREG LOT # (test code = 3575) POCT PREG TEST DATE (test code = 3576) [facility] [id number] 18:59:00 Test Item Value Reference Range Interpretation Comments POCT PREG (test code = 1605) Negative On board controls acceptable with C Yes Line (test code = 3574) POCT PREG LOT # (test code = 3575) POCT PREG TEST DATE (test code = 3576) [facility] [id number] 18:59:00 Test Item Value Reference Range Interpretation Comments POCT PREG (test code = 1605) Negative On board controls acceptable with C Yes Line (test code = 3574) POCT PREG LOT # (test code = 3575) POCT PREG TEST DATE (test code = 3576) [facility] URINALYSIS W/O SPECIFIC [id number] 18:58:00 Test Item Value Reference Range Interpretation Comments POCT PH U (test code = 3254) 8 mg/dl 5-8 POCT U LEUK EST (test code = Trace Negative - Negative 3263) POCT U NIT (test code = 3262) Neg Negative - Negative POCT U PROT (test code = 3259) Trace Negative - Negative POCT U GLU (test code = 3256) Neg Negative - Negative POCT U KETONE (test code = 3258) None Negative - Negative POCT U BLD (test code = 3257) Trace Negative - Negative [facility] [id number] 18:58:00 Test Item Value Reference Range Interpretation Comments POCT PH U (test code = 3254) 8 mg/dl 5-8 POCT U LEUK EST (test code = Trace Negative - Negative 3263) POCT U NIT (test code = 3262) Neg Negative - Negative POCT U PROT (test code = 3259) Trace Negative - Negative POCT U GLU (test code = 3256) Neg Negative - Negative POCT U KETONE (test code = 3258) None Negative - Negative POCT U BLD (test code = 3257) Trace Negative - Negative [facility] URINALYSIS W/O SPECIFIC [id number] 18:58:00 Test Item Value Reference Range Interpretation Comments POCT PH U (test code = 3254) 8 mg/dl 5-8 POCT U LEUK EST (test code = Trace Negative - Negative 3263) POCT U NIT (test code = 3262) Neg Negative - Negative POCT U PROT (test code = 3259) Trace Negative - Negative POCT U GLU (test code = 3256) Neg Negative - Negative POCT U KETONE (test code = 3258) None Negative - Negative POCT U BLD (test code = 3257) Trace Negative - Negative [facility] URINALYSIS W/O SPECIFIC [id number] 18:58:00 Test Item Value Reference Range Interpretation Comments POCT PH U (test code = 3254) 8 mg/dl 5-8 POCT U LEUK EST (test code = Trace Negative - Negative 3263) POCT U NIT (test code = 3262) Neg Negative - Negative POCT U PROT (test code = 3259) Trace Negative - Negative POCT U GLU (test code = 3256) Neg Negative - Negative POCT U KETONE (test code = 3258) None Negative - Negative POCT U BLD (test code = 3257) Trace Negative - Negative [facility] SPECIFIC [id number] 18:58:00 Test Item Value Reference Range Interpretation Comments POCT PH U (test code = 3254) 8 mg/dl 5-8 POCT U LEUK EST (test code = Trace Negative - Negative 3263) POCT U NIT (test code = 3262) Neg Negative - Negative POCT U PROT (test code = 3259) Trace Negative - Negative POCT U GLU (test code = 3256) Neg Negative - Negative POCT U KETONE (test code = 3258) None Negative - Negative POCT U BLD (test code = 3257) Trace Negative - Negative [facility] [id number] 18:58:00 Test Item Value Reference Range Interpretation Comments POCT PH U (test code = 3254) 8 mg/dl 5-8 POCT U LEUK EST (test code = Trace Negative - Negative 3263) POCT U NIT (test code = 3262) Neg Negative - Negative POCT U PROT (test code = 3259) Trace Negative - Negative POCT U GLU (test code = 3256) Neg Negative - Negative POCT U KETONE (test code = 3258) None Negative - Negative POCT U BLD (test code = 3257) Trace Negative - Negative [facility]/O SPECIFIC [id number] 18:58:00 Test Item Value Reference Range Interpretation Comments POCT PH U (test code = 3254) 8 mg/dl 5-8 POCT U LEUK EST (test code = Trace Negative - Negative 3263) POCT U NIT (test code = 3262) Neg Negative - Negative POCT U PROT (test code = 3259) Trace Negative - Negative POCT U GLU (test code = 3256) Neg Negative - Negative POCT U KETONE (test code = 3258) None Negative - Negative POCT U BLD (test code = 3257) Trace Negative - Negative [facility]
[2023-01-06 18:09] LABS: Absolute Lymphocytes (CBC) 2.9 K/uL (0.7-4.9); Hematocrit 40.7 % (36.0-45.0); Lymphocytes % 27.3 % (15.3-44.8); MCV 87.5 fL (80-100); MPV 7.7 fL (7.6-11.3); Platelets 280 thou/uL (152-406); RBC Red Blood Cell Count 4.65 M/uL (3.86-4.86)
[2023-01-06 18:26] LABS: Specific Gravity 1.024 (1.005-1.030)
[2023-01-06 18:33] LABS: Albumin 4.3 g/dL (3.4-5.0); Bilirubin Total 0.4 mg/dL (0.2-1.0); Magnesium 2.3 mg/dL (1.6-2.4); Potassium 3.5 mEq/L (3.5-5.1); Protein, Total 7.6 g/dL (6.4-8.2); Thyroid Stimulating Hormone 0.939 uIU/mL (0.358-3.740)
[2023-01-06 18:46] LABS: Specific Gravity 1.024 (1.005-1.030); Urine Bacteria None Seen /HPF (<20); Urine Bilirubin NEGATIVE (Negative); Urine Blood Trace (Negative); Urine Clarity Clear (Clear); Urine Color Light-Yellow (Yellow); Urine Glucose NEGATIVE (Negative); Urine Mucus Slight /HPF (None Seen); Urine Protein NEGATIVE (Negative); Urine RBC <5 /HPF (None Seen); Urine Urobilinogen Normal (Normal)
--- NOTE | 2023-01-06 19:26 | ER ---
Nurse's Notes [facility] Name: Florina Hernandez Age: 22 yrs Sex: Female : 2000 Arrival Date: 01/06/2023 Time: 17:02 Bed 13 Private MD: Diagnosis: Nausea with vomiting, unspecified Presentation: 01/06 17:39 Chief complaint: Patient states: N/V/D for 3 days. No fever. Coronavirus screen: ll1 Vaccine status: Patient reports being unvaccinated. Client denies travel out of the [place] in the last 14 days. diarrhea, nausea, vomiting. Ebola Screen: Patient denies travel to an Ebola-affected area in the 21 days before illness onset. Initial Sepsis Screen: Does the patient meet any 2 criteria? No. Patient's initial sepsis screen is negative. Does the patient have a suspected source of infection? Yes: Acute abdominal pain. Risk Assessment: Do you want to hurt yourself or someone else? Patient reports no desire to harm self or others. Onset of symptoms was January 04, 2023. 17:39 Method Of Arrival: Ambulatory 1 17:39 Acuity: MAAME 3 ll1 Historical: - Allergies: 17:38 PROPOFOL; ll1 - PMHx: 17:38 Anxiety; Bipolar disorder; ADD/ADHD; Depression; vaginal bleeding; ll1 - PSHx: 17:38 throat SX; ll1 - Immunization history:: Client reports having NOT received the Covid vaccine. - Social history:: Smoking status: Smoking status: Reported history of juuling and/or vaping. Screenin:24 [facility] ED Fall Risk Assessment (Adult) History of falling in the last 3 months, cm10 including since admission No falls in past 3 months (0 pts) Confusion or Disorientation No (0 pts) Intoxicated or Sedated No (0 pts) Impaired Gait No (0 pts) Mobility Assist Device Used No (0 pt) Altered Elimination No (0 pt) Score/Fall Risk Level 0 - 2 = Low Risk Oriented to surroundings, Maintained a safe environment, Hourly rounding (assess needs \T\ fall precautionary measures) done. Abuse screen: Denies threats or abuse. Denies injuries from another. Nutritional screening: No deficits noted. Tuberculosis screening: No symptoms or risk factors identified. Assessment: 18:22 General: Appears in no apparent distress. comfortable, Behavior is calm, cooperative, cm10 appropriate for age. Pain: Complains of pain in abdomen Pain does not radiate. Pain currently is 4 out of 10 on a pain scale. Neuro: No deficits noted. Level of Consciousness is awake, alert, obeys commands, Oriented to person, place, time, situation. Respiratory: No deficits noted. Airway is patent Respiratory effort is even, unlabored, Respiratory pattern is regular, symmetrical. GI: Abdomen is flat, Reports nausea, vomiting. Derm: No deficits noted. Skin is intact, Skin is pink, warm \T\ dry. 19:11 Reassessment: Patient and/or family updated on plan of care and expected duration. Pain fu level reassessed. Patient is alert, oriented x 3, equal unlabored respirations, skin warm/dry/pink. Vital Signs: 17:39 BP 133 / 92; Pulse 64; Resp 16; Temp 98.4; Pulse Ox 100% ; Weight 43.09 kg; Height 4 ll1 ft. 8 in. ; Pain 4/10; 19:10 BP 109 / 64; Pulse 73; Resp 16; Pulse Ox 100% on R/A; Pain 0/10; fu 19:30 BP 115 / 75; Pulse 56; Pulse Ox 100% on R/A; Pain 0/10; fu 17:39 Body Mass Index 21.30 (43.09 kg, 142.24 cm) ll1 17:39 Pain Scale: Adult ll1 19:10 Pain Scale: Adult fu 19:30 Pain Scale: Adult fu ED Course: 17:04 Patient arrived in ED. mr 17:14 Wanda Barrow PA-C is [facility]. sb4 17:14 Sigifredo Parker MD is Attending Physician. sb4 17:40 Triage completed. ll1 17:40 Arm band placed on Patient placed in an exam room, on a stretcher. ll1 18:18 Test, Urine Sent. cm10 18:18 UAM Sent. cm10 18:22 Gabbie Garcia, ANDERS is Primary Nurse. cm10 18:24 Patient has correct armband on for positive identification. Bed in low position. Call cm10 light in reach. Side rails up X 1. Provided Education on: ER Process and procedures.. 18:24 No provider procedures requiring assistance completed. Inserted saline lock: 22 gauge cm10 in right antecubital area, using aseptic technique. 19:11 Pulse ox on. NIBP on. fu 20:02 IV discontinued, bleeding controlled, Pressure dressing applied. fu Administered Medications: No medications were administered Medication: 18:25 VIS not applicable for this client. cm10 Outcome: 19:25 Discharge ordered by MD. mann 20:01 Discharged to home ambulatory, with friend, fu 20:01 Condition: stable 20:01 Discharge instructions given to patient, Instructed on discharge instructions, follow up and referral plans. Demonstrated understanding of instructions, follow-up care, Prescriptions given X 0 20:02 Patient left the ED. fu Signatures: Balbina Adams, Reg Reg mr Chad Espinoza, RN RN Scarlet Beck RN RN ll1 Wanda Barrow, PA-C PA-Gabbie Jackson RN RN cm10
--- NOTE | 2023-01-06 19:26 | EDPHYS ---
Physician Documentation [facility] Name: Florina Hernandez Age: 22 yrs Sex: Female : 2000 Arrival Date: 01/06/2023 Time: 17:02 Bed 13 Private MD: ED Physician Sigifredo Parker HPI: 01/07 01:20 This 22 yrs old Female presents to ER via Ambulatory with complaints of Vomiting. sb4 01:20 Patient comes in with several complaints- nausea/vomiting in the mornings, decreased sb4 appetite, unintentional weight loss, fatigue, back pain x several months. She states that she has sought prior medical care about 6 months ago but felt that her concerns were not taken seriously. She is concerned because her parents have several chronic medical conditions. 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 Historical: - Allergies: 01/06 17:38 PROPOFOL; ll1 - PMHx: 17:38 Anxiety; Bipolar disorder; ADD/ADHD; Depression; vaginal bleeding; ll1 - PSHx: 17:38 throat SX; ll1 - Immunization history:: Client reports having NOT received the Covid vaccine. - Social history:: Smoking status: Smoking status: Reported history of juuling and/or vaping. ROS: 01/07 01:20 Cardiovascular: Negative for chest pain, palpitations, and edema, sb4 Constitutional: Positive for weight loss, Abdomen/GI: Positive for nausea and vomiting, Back: Positive for pain at rest, All other systems are negative, Exam: 01:20 Constitutional: This is a well developed, well nourished patient who is awake, alert, sb4 and in no acute distress. Head/Face: Normocephalic, atraumatic. Eyes: Extra-ocular motions intact. Periorbital areas with no swelling, redness, or edema. ENT: Mucous membranes moist. Cardiovascular: Regular rate and rhythm with a normal S1 and S2. Respiratory: Lungs have equal breath sounds bilaterally, clear to auscultation and percussion. No rales, rhonchi or wheezes noted. No increased work of breathing, no retractions or nasal flaring. Abdomen/GI: Soft, non-tender, no distension. Skin: Warm, dry with normal turgor. Normal color with no rashes, no lesions, and no evidence of cellulitis. MS/ Extremity: Pulses equal, no cyanosis. Neurovascular intact. Full, normal range of motion. Neuro: Awake and alert, GCS 15, oriented to person, place, time, and situation. Motor strength 5/5 in all extremities. Sensory grossly intact. Vital Signs: 01/06 17:39 BP 133 / 92; Pulse 64; Resp 16; Temp 98.4; Pulse Ox 100% ; Weight 43.09 kg; Height 4 ll1 ft. 8 in. ; Pain 4/10; 19:10 BP 109 / 64; Pulse 73; Resp 16; Pulse Ox 100% on R/A; Pain 0/10; fu 19:30 BP 115 / 75; Pulse 56; Pulse Ox 100% on R/A; Pain 0/10; fu 17:39 Body Mass Index 21.30 (43.09 kg, 142.24 cm) ll1 17:39 Pain Scale: Adult ll1 19:10 Pain Scale: Adult fu 19:30 Pain Scale: Adult fu MDM: 17:23 Patient medically screened. sb4 01/07 01:20 Differential diagnosis: , anemia, uti, hyperglycemia, electrolyte abnormality, sb4 hypothyroidism, hyperthyroidism, hypoglycemia. Data reviewed: vital signs, nurses notes, lab test result(s), and as a result, I will discharge patient. Counseling: I had a detailed discussion with the patient and/or guardian regarding the historical points, exam findings, and any diagnostic results supporting the discharge/admit diagnosis, lab results, the need for outpatient follow up, for definitive care, to return to the emergency department if symptoms worsen or persist or if there are any questions or concerns that arise at home. ED course: . 01/06 17:54 Order name: CBC with Diff; Complete Time: 18:39 sb4 01/06 17:54 Order name: CMP; Complete Time: 18:39 sb4 01/06 17:54 Order name: Magnesium; Complete Time: 18:39 sb4 01/06 17:54 Order name: TSH; Complete Time: 18:39 sb4 01/06 17:58 Order name: UAM; Complete Time: 18:47 sb4 01/06 17:58 Order name: Test, Urine; Complete Time: 18:47 sb4 Administered Medications: No medications were administered Disposition Summary: 01/06/23 19:25 Discharge Ordered Notes: Location: Home sb4 Problem: an ongoing problem sb4 Symptoms: are unchanged sb4 Condition: Stable sb4 Diagnosis - Nausea with vomiting, unspecified sb4 Followup: sb4 - With: Private Physician - When: As needed - Reason: Recheck today's complaints, Continuance of care, Re-evaluation by your physician Discharge Instructions: - Discharge Summary Sheet sb4 - Nausea and Vomiting, Adult sb4 Forms: - Work release form fu - Medication Reconciliation Form sb4 - Thank You Letter sb4 - Antibiotic Education sb4 - Prescription Opioid Use sb4 - Patient Portal Instructions sb4 - Leadership Thank You Letter sb4 Addendum: 01/08/2023 09:57 Co-signature as Attending Physician, Sigifredo Parker MD I reviewed the patient's care r n provided by the Advanced Practice Provider and agree with the diagnosis and treatment plan. Signatures: Dispatcher [employer] Sigifredo Cotton MD MD rn Lewis, Lynsay, RN RN ll1 Wanda Barrow, JOVANY MANZO sb4
[2023-01-06 22:30] VITALS: TEMP 98.4; O2SAT 100
[2023-01-06 22:32] VITALS: BP 115/75
== END 2023-01-06 20:02 | disposition home or self-care (01) ==
LOC: ER 17:02
DX: R11.2 Nausea with vomiting, unspecified (principal); Z88.4 Allergy status to anesthetic agent
CPT/HCPCS: 36415; 80053; 81001; 81025; 83735; 84443; 85025; 99284

== ENCOUNTER 2024-01-16 19:57 | Emergency (ER) | payer SELFPAY ==
--- OUTSIDE RECORDS SUMMARY | 2024-01-16 20:01 | XMS REPORT | Continuity of Care Document ---
Author Name Unknown Address [address] [facility] [address] [place] [address] [facility] Address [address] [facility] [address] [place] [address] Care Team Providers Care Timber Sprinkler Name Role Phone NAIN ALMEIDA Primary Care Physician Unavailab PATTI Leach Attending Clinician Unavailable Amarilis Jimenez Attending Clinician [phone] Unknown, Attending Attending Clinician UnavailPatti Edward Attending Clinician [phone] Doctor Unassigned, [place] Attending Clinician U EDITH Brock Attending Clinician Unavail able Tisha WHEdith CALDWELL Attending Clinician + KAEL MARTINEZ Attending Clinician Unavailanastasia e KAEL MARTINEZ Attending Clinician Unavailanastasia e Anitha GerberRmchp Temp Attending Clinician Dedra Emilee Katz Attending Clinician [phone] Nain Hernandez Attending Clinician [phone] Tito Coffman Db Attending Clinician Unavailable NAIN ALMEIDA Attending Clinician Unavailable Annalee Fang MD Attending Clinician + [phone] Payers Payer Name Policy Type Policy Number Effective Date Expirati on Date Source [employer] [place] [id number] 2022 00:00:00 Problems Condition Name Condition Details Condition Category Status Onset Date Resolution Date Last Treatment Date Treating Clinician Comments Source Other general counseling and advice for contracept rodo management Other general counseling and advice for contracept rodo management Disease Active 3-24 00:00: 00 [facility] Trichomona l vulvovagin itis Trichomona l vulvovagin itis Disease Active 2021-04 0-03 00:00: 00 [facility] Yeast infection Yeast infection Disease Active 2021-04 0-03 00:00: 00 [facility] Bacterial vaginosis Bacterial vaginosis Disease Active 2021-04 0-03 00:00: 00 [facility] Acute cystitis without hematuria Acute cystitis without hematuria Disease Active 2021-04 0-03 00:00: 00 [facility] Anxiety and depression Anxiety and depression Disease Active 930 00:00: 00 [facility] Hair loss Hair loss Disease Active 9 00:00: 00 [facility] BV (bacterial vaginosis) BV (bacterial vaginosis) Disease Active 4 00:00: 00 Overview: Formattin g of this note might be different from the original. 07/09/18 - s/p Flagyl [facility] Oligomenor bam Oligomenor bam Disease Active 07-08 00:00: 00 [facility] PCOS (polycysti c ovarian syndrome) PCOS (polycysti c ovarian syndrome) Disease Active 07-08 00:00: 00 Overview: 07/08/18 - DHEA-S 350 mcg/dl (elevated ). FSH 3.5 LH 6.3, free testoster one 18 (normal) and AMH 3.34. Will obtain a 17 OHP and androstei ndione. Repeat DHEA-S in 3 months. [facility] Uses oral contracept ion Uses oral contracept ion Disease Active 07-08 00:00: 00 Overview: Formattin g of this note might be different from the original. 07/08/18 - OCPs started for cycle control and contracep tion. [facility] PCOS (polycysti c ovarian syndrome) PCOS (polycysti c ovarian syndrome) Disease Active 07-08 00:00: 00 Overview: Formattin g of this note might be different from the original. 07/08/18 - DHEA-S 350 mcg/dl (elevated ). FSH 3.5 LH 6.3, free testoster one 18 (normal) and AMH 3.34. Will obtain a 17 OHP and androstei ndione. Repeat DHEA-S in 3 months. [facility] Ingested substance, unknown drug, intentiona l self-harm, initial encounter Ingested substance, unknown drug, intentiona l self-harm, initial encounter Disease Active 2017-04 0 00:00: 00 Overview: Formattin g of this note might be different from the original. Took Zoloft and Nyquil [facility] Basic learning disability , arithmetic Basic learning disability , arithmetic Disease Active 10-16 00:00: 00 [facility] Pilonidal cyst Pilonidal cyst Disease Active [facility] History of early menarche History of early menarche Disease Active Overview: Formattin g of this note might be different from the original. Age 9 with symptoms of precociou s puberty [facility] Hirsutism Hirsutism Disease Active [facility] Depressed mood Depressed mood Disease Active [facility] BMI (body mass index), pediatric, greater than or equal to 95% for age BMI (body mass index), pediatric, greater than or equal to 95% for age Disease Active Overview: Formattin g of this note might be different from the original. truncal obesity [facility] Anesthesia complicati on Anesthesia complicati on Disease Active Overview: Formattin g of this note might be different from the original. 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 and was "allergic " to general anesthesi a [facility] ADD (attention deficit disorder) ADD (attention deficit disorder) Disease Active [facility] ADD (attention deficit disorder) ADD (attention deficit disorder) Disease Active [facility] Allergies, Adverse Reactions, Alerts Allergy Name Allergy Type Status Severity Reaction(s) Onset Date Inactive Date Treating Clinician Comments Source Propofol Propensi ty to adverse reaction s Active Anaphylaxis 08-29 00:00: 00 Will need records from [facility] Adriel - but mother reports patient coded during induction at age 18 months and is allergic to and unknown anesthesi a medicatio n for general. Does not think it is malignant hyperther homar but we will request records. [facility] PROPOFOL DRUG INGREDI Active High Anaphylaxis 08-29 00:00: 00 [facility] Nitrous Oxide Propensi ty to adverse reaction s Active Anaphylaxis 10-05 00:00: 00 [facility] NITROUS OXIDE DRUG INGREDI Active Anaphylaxis 10-05 00:00: 00 [facility] Family History Family Member Diagnosis Comments Start Date Stop Date Sourc e Paternal Aunt Heart Univer [facility] Paternal Grandmother Diabetes [facility] Paternal Grandmother Other - see comments [facility] Father Diabetes [facility] Father Neurological [facility] Father Other - see comments [facility] Maternal Grandmother ADHD [facility] Mother PCOS (polycystic ovary syndrome) [facility] Mother Thyroid [facility] Other Mental illness Unive [facility] Social History Social Habit Start Date Stop Date Quantity Comments Source History of tobacco use Cigarette Smoker [facility] History SDOH Alcohol Frequency [facility] History SDOH Alcohol Std Drinks [facility] History SDOH Alcohol Binge [facility] Alcohol intake 2023-04-04 00:00:00 2023-04-04 00:00:00 Current drinker of alcohol (finding) [facility] Exposure to SARS-CoV-2 (event) 2022-08-28 00:00:00 2022-09-07 09:38:[address] [facility] Tobacco Comment 2022-01-13 00:00:00 2022-01-13 00:00:00 social / but used to smoke everyday [facility] Tobacco use and exposure 2022-01-13 00:00:00 2022-01-13 00:00:00 Smokeless tobacco non-user [facility] History of Social function 2019-11-20 00:00:00 2019-11-20 00:00:[address] [facility] Alcohol Comment 2017-08-29 00:00:00 2017-08-29 00:00:00 x1 in 8 grade only, no recent [facility] Sex Assigned At 2000 00:00:00 2000 00:00:[address] [facility] Smoking Status Start Date Stop Date Source Occasional tobacco smoker 2022-01-13 00:00:[address] [facility] Medications Ordered Medication Name Filled Medication Name Start Date Stop Date Current Medication? Ordering Clinician Indication Dosage Frequency Signature (SIG) Comments Components Source fluconazole (DIFLUCAN) 150 mg tablet 09-07 00:00: 00 09-08 04:59 :00 No [id number] 150mg Take 1 tablet by mouth once now for 1 dose. [facility] metroNIDAZO LE 500 mg tablet - 00:00: 00 Yes [id number] 500mg Take 1 tablet by mouth in the morning and 1 tablet in the evening. [facility] cefTRIAXone (ROCEPHIN) injection 500 mg 2021-04 0- 05:00: 00 01-16 16:31 :49 No [id number] 500mg [facility] ampicillin 500 mg capsule 2021-04 0- 00:00: 00 01-24 04:59 :00 No [id number] 500mg Take 1 capsule by mouth every 6 (six) hours for 7 days. [facility] fluconazole 150 mg tablet 2021-04 0- 00:00: 00 01-17 04:59 :00 No [id number] 150mg Take 1 tablet by mouth once now for 1 dose. [facility] metroNIDAZO LE 500 mg tablet 01-13 00:00: 00 01-28 04:59 :00 No [id number] 500mg Take 1 tablet by mouth in the morning and 1 tablet in the evening. Do all this for 14 days. [facility] doxycycline hyclate 100 mg tablet 01-13 00:00: 00 01-16 00:00 :00 No [id number] 100mg Take 1 tablet by mouth in the morning and 1 tablet in the evening. Do all this for 14 days. [facility] lisdexamfet amine 40 mg capsule 01-06 00:00: 00 Yes [id number] 40mg Take 1 capsule by mouth every morning. [facility] lisdexamfet amine 40 mg capsule 01-03 00:00: 00 Yes [id number] 40mg Take 1 capsule by mouth every morning. [facility] albuterol 90 mcg/actuati on inhaler 2017-04 00:00: 00 Yes [id number] 2{puff} Inhale 2 Puffs every 4 (four) hours as needed for Wheezing or Shortness of Breath (or cough). [facility] Vital Signs Vital Name Observation Time Observation Value Comments S ourkrystyna Systolic blood pressure 2023-04-05 01:17:00 118 mm[Hg] [facility] Diastolic blood pressure 2023-04-05 01:17:00 86 mm[Hg] [facility] Heart rate 2023-04-05 01:17:00 81 /min [facility] Body temperature 2023-04-05 01:17:[address] [facility] Respiratory rate 2023-04-05 01:17:00 15 /min [facility] Body weight 2023-04-05 01:17:00 45.813 kg [facility] Oxygen saturation in Arterial blood by Pulse oximetry 2023-04-05 01:17:00 99 /min [facility] Systolic blood pressure 2022-09-07 14:38:00 115 mm[Hg] [facility] Diastolic blood pressure 2022-09-07 14:38:00 71 mm[Hg] [facility] Heart rate 2022-09-07 14:38:00 66 /min [facility] Body temperature 2022-09-07 14:38:[address] [facility] Respiratory rate 2022-09-07 14:38:00 18 /min [facility] Body height 2022-09-07 14:38:00 142.2 cm [facility] Body weight 2022-09-07 14:38:00 47.446 kg [facility] BMI 2022-09-07 14:38:00 23.45 kg/m2 Univ [facility] Systolic blood pressure 2022-07-07 15:06:00 124 mm[Hg] [facility] Diastolic blood pressure 2022-07-07 15:06:00 87 mm[Hg] [facility] Heart rate 2022-07-07 15:06:00 73 /min [facility] Body temperature 2022-07-07 15:06:[address] [facility] Respiratory rate 2022-07-07 15:06:00 18 /min [facility] Body height 2022-07-07 15:06:[address] [facility] Body weight 2022-07-07 15:06:00 46.584 kg [facility] BMI 2022-07-07 15:06:00 23.02 kg/m2 Univ [facility] Systolic blood pressure 2022-01-16 15:48:00 117 mm[Hg] [facility] Diastolic blood pressure 2022-01-16 15:48:00 70 mm[Hg] [facility] Heart rate 2022-01-16 15:48:00 57 /min [facility] Body temperature 2022-01-16 15:48:[address] [facility] Respiratory rate 2022-01-16 15:48:00 18 /min [facility] Body height 2022-01-16 15:48:[address] [facility] Body weight 2022-01-16 15:48:[address] [facility] BMI 2022-01-16 15:48:00 23.15 kg/m2 Univ [facility] Systolic blood pressure 2022-01-13 15:55:00 125 mm[Hg] [facility] Diastolic blood pressure 2022-01-13 15:55:00 85 mm[Hg] [facility] Heart rate 2022-01-13 15:51:00 87 /min [facility] Body temperature 2022-01-13 15:51:[address] [facility] Respiratory rate 2022-01-13 15:51:00 18 /min [facility] Body height 2022-01-13 15:51:00 142.2 cm [facility] Body weight 2022-01-13 15:51:00 47.854 kg [facility] BMI 2022-01-13 15:51:00 23.65 kg/m2 [facility] Systolic blood pressure 2022-01-13 14:22:00 116 mm[Hg] [facility] Diastolic blood pressure 2022-01-13 14:22:00 79 mm[Hg] [facility] Heart rate 2022-01-13 14:22:00 64 /min [facility] Body height 2022-01-13 14:22:00 142.2 cm [facility] Body weight 2022-01-13 14:22:00 47.628 kg [facility] BMI 2022-01-13 14:22:00 23.54 kg/m2 [facility] Oxygen saturation in Arterial blood by Pulse oximetry 2022-01-13 14:22:00 100 /min [facility] Heart rate 2019-01-03 20:01:00 56 /min [facility] Systolic blood pressure 2019-01-03 19:56:00 114 mm[Hg] [facility] Diastolic blood pressure 2019-01-03 19:56:00 55 mm[Hg] [facility] Respiratory rate 2019-01-03 19:56:00 18 /min [facility] Body height 2019-01-03 19:56:00 143.5 cm [facility] Body weight 2019-01-03 19:56:00 60.555 kg [facility] BMI 2019-01-03 19:56:00 29.40 kg/m2 [facility] Body temperature 2018-09-13 14:50:[address] [facility] Oxygen saturation in Arterial blood by Pulse oximetry 2018-09-13 14:50:00 99 /min [facility] Procedures Procedure Date / Time Performed Performing Clinicia n Source POCT SARS-COV-2 ANTIGEN (BINAX NOW) 2023-04-05 01:27:[address] [facility] POCT MOLECULAR FLU 2023-04-05 01:25:00 Unknown, Attend [facility] CONSENT/REFUSAL FOR DIAGNOSIS AND TREATMENT 2023-04-05 01:22:44 Doctor Unassigned, [place] [facility] POCT TEST 2022-07-07 15:09:00 Sonny Giles [facility] PATIENT FINANCIAL POLICY 2022-07-07 14:29:42 Doctor Unassigned, [place] [facility] POCT URINALYSIS W/O SPECIFIC GRAVITY 2022-01-13 19:07:00 Henrry [facility] POCT TEST 2022-01-13 19:06:00 Sa Henrry [facility] POCT TEST 2022-01-13 18:59:00 Henrry [facility] POCT URINALYSIS W/O SPECIFIC GRAVITY 2022-01-13 18:58:00 Henrry [facility] ASSIGNMENT OF BENEFITS 2022-01-13 14:05:14 Docto r Unassigned, [place] [facility] Encounters Start Date/Time End Date/Time Encounter Type Admission Type Attending [facility] Care Facility Care Department Encounter ID Source 2023-04-04 19:20:00 2023-04-04 19:41:26 Outpatient R PATTI RAMIREZ [facility] [id number] [facility] 2023-04-04 19:20:00 2023-04-04 19:41:26 Urgent Care Amarilis Cotto Unknown, Attending Patti Ramirez [facility] 1.2.840.114 350.1.13.10 4.2.7.2.686 [id number] [facility] 2023-04-04 00:00:00 2023-04-04 00:00:00 Orders Only Doctor Unassigned, [place] [address]28[address].114 350.1.13.10 4.2.7.2.686 [id number] [facility] 2023-01-08 09:30:00 2023-01-08 09:30:00 Outpatient R EDITH GILES [facility] [id number] [facility] 2022-10-27 18:21:25 2022-10-27 18:21:25 Outpatient [facility] [id number] Demetris Guadarrama 2022-09-11 00:00:00 2022-09-11 00:00:00 Refill Edith Giles [facility]ILD [facility] 1.2840.114 350.1.13.10 4.2.7.2.686 [id number] [facility] 2022-09-07 08:45:00 2022-09-07 10:07:39 Outpatient R EDITH GILES [facility] [id number] [facility] 2022-09-07 08:45:00 2022-09-07 10:07:39 Office Visit Edith Giles [facility] & CHILD [facility] 1.2840.114 350.1.13.10 4.2.7.2.686 [id number] [facility] 2022-09-06 00:00:00 2022-09-06 00:00:00 Telephone Edith Giles [facility] & CHILD [facility] 1.2.840.114 350.1.13.10 4.2.7.2.686 [id number] [facility] 2022-07-10 00:00:00 2022-07-10 00:00:00 Telephone Edith Giles [facility] 1.2.840.114 350.1.13.10 4.2.7.2.686 [id number] [facility] 2022-07-07 09:30:00 2022-07-07 10:29:23 Outpatient EDITH FELIX [facility] [id number] [facility] 2022-07-07 09:30:00 2022-07-07 10:29:23 Office Visit Edith Giles [facility] 1..114 350.1.13.10 4.2.7.2.686 [id number] [facility] 2022-07-07 00:00:00 2022-07-07 00:00:00 Orders Only Doctor Unassigned, [place] [facility] 1..114 350.1.13.10 4.2.7.2.686 [id number] [facility] 2022-05-31 15:56:14 2022-05-31 15:56:14 Outpatient [facility] [id number] Demetris Guadarrama 2022-04-14 13:30:00 2022-04-14 13:30:00 Outpatient R EDITH GILES [facility] [id number] [facility] 2022-01-16 13:15:00 2022-01-16 13:15:00 Outpatient R EDITH GILES [facility] [id number] [facility] 2022-01-16 10:00:00 2022-01-16 11:52:54 Outpatient [facility] [id number] [facility] 2022-01-16 10:00:00 2022-01-16 11:52:54 Office Visit Provider, AnithaRmchEdith Roy Emily J. Loewenthal, Sarah [facility] .840.114 350.1.13.10 4.2.7.2.686 [id number] [facility] 2022-01-13 10:00:00 2022-01-13 12:12:46 Office Visit Provider, Kael Lynn [facility] & [facility] 1.2.840.114 350.1.13.10 4.2.7.2.686 [id number] [facility] 2022-01-13 10:00:00 2022-01-13 12:12:46 Outpatient R KAEL MARTINEZ KAEL [facility] [id number] [facility] 2022-01-13 09:00:00 2022-01-13 10:00:24 Office Visit Nain Almeida [facility] 1.2.840.114 350.1.13.10 4.2.7.2.686 [id number] [facility] 2022-01-13 09:45:00 2022-01-13 10:00:00 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, Tito Almeida Critical access hospital?[facility] 1.2.840.114 350.1.13.10 4.2.7.2.686 [id number] [facility] 2022-01-13 00:00:00 2022-01-13 00:00:00 Orders Only Doctor Unassigned, [place] [facility] 1.2.840.114 350.1.13.10 4.2.7.2.686 [id number] [facility] 2021-10-11 13:30:00 2021-10-11 13:30:00 Outpatient R EDITH GILES [facility] [id number] [facility] 2019-06-17 00:00:00 2019-06-17 00:00:00 Telephone [facility] 1.2.840.114 350.1.13.10 4.2.7.2.686 [id number] [facility] Results Test Description Test Time Test Comments Results Result Co mments Source [facility] SARS-COV-2 ANTIGEN (BINAX NOW)2023-04-05 01:27:00* Test Item Value Reference Range Interpretation Comme nts POCT SARS-COV-2 ANTIGEN (test code = 96922-7) Not Detected Not Detected On board controls acceptable with C Line (test code = 3574) Yes YULIANA (test code = YULIANA) accurate developme nt and interpretation of all internal controls Lab Interpretation (test code = 27669-2) Normal [facility] [id number] 15:09:00* Test Item Value Reference Range Interpretation Comme nts POCT PREG (test code = 1605) Negative On board controls acceptable with C Line (test code = 3574) Yes POCT PREG LOT # (test code = 3575) POCT PREG TEST DATE ( test code = 3576) [facility] [id number] 15:09:00* Test Item Value Reference Range Interpretation Comme nts POCT PREG (test code = 1605) Negative On board controls acceptable with C Line (test code = 3574) Yes POCT PREG LOT # (test code = 3575) POCT PREG TEST DATE ( test code = 3576) [facility] URINALYSIS W/O SPECIFIC [id number] 19:07:00* Test Item Value Reference Range Interpretation Comme nts POCT PH U (test code = 3254) 8 mg/dl 5-8 POCT U LEUK EST (test code = 3263) Trace Negative - Negative POCT U NIT (test code = 3262) Neg Negative - Negati ve POCT U PROT (test code = 3259) Trace Negative - Negat rodo POCT U GLU (test code = 3256) Neg Negative - Negati ve POCT U KETONE (test code = 3258) None Negative - Neg ative POCT U BLD (test code = 3257) Trace Negative - Negati ve [facility] URINALYSIS W/O SPECIFIC [id number] 19:07:00* Test Item Value Reference Range Interpretation Comme nts POCT PH U (test code = 3254) 8 mg/dl 5-8 POCT U LEUK EST (test code = 3263) Trace Negative - Negative POCT U NIT (test code = 3262) Neg Negative - Negati ve POCT U PROT (test code = 3259) Trace Negative - Negat rodo POCT U GLU (test code = 3256) Neg Negative - Negati ve POCT U KETONE (test code = 3258) None Negative - Neg ative POCT U BLD (test code = 3257) Trace Negative - Negati ve [facility] URINALYSIS W/O SPECIFIC [id number] 19:07:00* Test Item Value Reference Range Interpretation Comme nts POCT PH U (test code = 3254) 8 mg/dl 5-8 POCT U LEUK EST (test code = 3263) Trace Negative - Negative POCT U NIT (test code = 3262) Neg Negative - Negati ve POCT U PROT (test code = 3259) Trace Negative - Negat rodo POCT U GLU (test code = 3256) Neg Negative - Negati ve POCT U KETONE (test code = 3258) None Negative - Neg ative POCT U BLD (test code = 3257) Trace Negative - Negati ve [facility] URINALYSIS W/O SPECIFIC [id number] 19:07:00* Test Item Value Reference Range Interpretation Comme nts POCT PH U (test code = 3254) 8 mg/dl 5-8 POCT U LEUK EST (test code = 3263) Trace Negative - Negative POCT U NIT (test code = 3262) Neg Negative - Negati ve POCT U PROT (test code = 3259) Trace Negative - Negat rodo POCT U GLU (test code = 3256) Neg Negative - Negati ve POCT U KETONE (test code = 3258) None Negative - Neg ative POCT U BLD (test code = 3257) Trace Negative - Negati ve [facility] URINALYSIS W/O SPECIFIC [id number] 19:07:00* Test Item Value Reference Range Interpretation Comme nts POCT PH U (test code = 3254) 8 mg/dl 5-8 POCT U LEUK EST (test code = 3263) Trace Negative - Negative POCT U NIT (test code = 3262) Neg Negative - Negati ve POCT U PROT (test code = 3259) Trace Negative - Negat rodo POCT U GLU (test code = 3256) Neg Negative - Negati ve POCT U KETONE (test code = 3258) None Negative - Neg ative POCT U BLD (test code = 3257) Trace Negative - Negati ve [facility] URINALYSIS W/O SPECIFIC [id number] 19:07:00* Test Item Value Reference Range Interpretation Comme nts POCT PH U (test code = 3254) 8 mg/dl 5-8 POCT U LEUK EST (test code = 3263) Trace Negative - Negative POCT U NIT (test code = 3262) Neg Negative - Negati ve POCT U PROT (test code = 3259) Trace Negative - Negat rodo POCT U GLU (test code = 3256) Neg Negative - Negati ve POCT U KETONE (test code = 3258) None Negative - Neg ative POCT U BLD (test code = 3257) Trace Negative - Negati ve [facility] URINALYSIS W/O SPECIFIC [id number] 19:07:00* Test Item Value Reference Range Interpretation Comme nts POCT PH U (test code = 3254) 8 mg/dl 5-8 POCT U LEUK EST (test code = 3263) Trace Negative - Negative POCT U NIT (test code = 3262) Neg Negative - Negati ve POCT U PROT (test code = 3259) Trace Negative - Negat rodo POCT U GLU (test code = 3256) Neg Negative - Negati ve POCT U KETONE (test code = 3258) None Negative - Neg ative POCT U BLD (test code = 3257) Trace Negative - Negati ve [facility] [id number] 19:06:00* Test Item Value Reference Range Interpretation Comme nts POCT PREG (test code = 1605) Negative On board controls acceptable with C Line (test code = 3574) Yes POCT PREG LOT # (test code = 3575) POCT PREG TEST DATE ( test code = 3576) [facility] [id number] 19:06:00* Test Item Value Reference Range Interpretation Comme nts POCT PREG (test code = 1605) Negative On board controls acceptable with C Line (test code = 3574) Yes POCT PREG LOT # (test code = 3575) POCT PREG TEST DATE ( test code = 3576) [facility] [id number] 19:06:00* Test Item Value Reference Range Interpretation Comme nts POCT PREG (test code = 1605) Negative On board controls acceptable with C Line (test code = 3574) Yes POCT PREG LOT # (test code = 3575) POCT PREG TEST DATE ( test code = 3576) [facility] [id number] 19:06:00* Test Item Value Reference Range Interpretation Comme nts POCT PREG (test code = 1605) Negative On board controls acceptable with C Line (test code = 3574) Yes POCT PREG LOT # (test code = 3575) POCT PREG TEST DATE ( test code = 3576) [facility] [id number] 19:06:00* Test Item Value Reference Range Interpretation Comme nts POCT PREG (test code = 1605) Negative On board controls acceptable with C Line (test code = 3574) Yes POCT PREG LOT # (test code = 3575) POCT PREG TEST DATE ( test code = 3576) [facility] [id number] 19:06:00* Test Item Value Reference Range Interpretation Comme nts POCT PREG (test code = 1605) Negative On board controls acceptable with C Line (test code = 3574) Yes POCT PREG LOT # (test code = 3575) POCT PREG TEST DATE ( test code = 3576) [facility] [id number] 19:06:00* Test Item Value Reference Range Interpretation Comme nts POCT PREG (test code = 1605) Negative On board controls acceptable with C Line (test code = 3574) Yes POCT PREG LOT # (test code = 3575) POCT PREG TEST DATE ( test code = 3576) [facility] [id number] 18:59:00* Test Item Value Reference Range Interpretation Comme nts POCT PREG (test code = 1605) Negative On board controls acceptable with C Line (test code = 3574) Yes POCT PREG LOT # (test code = 3575) POCT PREG TEST DATE ( test code = 3576) [facility] [id number] 18:59:00* Test Item Value Reference Range Interpretation Comme nts POCT PREG (test code = 1605) Negative On board controls acceptable with C Line (test code = 3574) Yes POCT PREG LOT # (test code = 3575) POCT PREG TEST DATE ( test code = 3576) [facility] [id number] 18:59:00* Test Item Value Reference Range Interpretation Comme nts POCT PREG (test code = 1605) Negative On board controls acceptable with C Line (test code = 3574) Yes POCT PREG LOT # (test code = 3575) POCT PREG TEST DATE ( test code = 3576) [facility] [id number] 18:59:00* Test Item Value Reference Range Interpretation Comme nts POCT PREG (test code = 1605) Negative On board controls acceptable with C Line (test code = 3574) Yes POCT PREG LOT # (test code = 3575) POCT PREG TEST DATE ( test code = 3576) [facility] [id number] 18:59:00* Test Item Value Reference Range Interpretation Comme nts POCT PREG (test code = 1605) Negative On board controls acceptable with C Line (test code = 3574) Yes POCT PREG LOT # (test code = 3575) POCT PREG TEST DATE ( test code = 3576) [facility] [id number] 18:59:00* Test Item Value Reference Range Interpretation Comme nts POCT PREG (test code = 1605) Negative On board controls acceptable with C Line (test code = 3574) Yes POCT PREG LOT # (test code = 3575) POCT PREG TEST DATE ( test code = 3576) [facility] [id number] 18:59:00* Test Item Value Reference Range Interpretation Comme nts POCT PREG (test code = 1605) Negative On board controls acceptable with C Line (test code = 3574) Yes POCT PREG LOT # (test code = 3575) POCT PREG TEST DATE ( test code = 3576) [facility] URINALYSIS W/O SPECIFIC [id number] 18:58:00* Test Item Value Reference Range Interpretation Comme nts POCT PH U (test code = 3254) 8 mg/dl 5-8 POCT U LEUK EST (test code = 3263) Trace Negative - Negative POCT U NIT (test code = 3262) Neg Negative - Negati ve POCT U PROT (test code = 3259) Trace Negative - Negat rodo POCT U GLU (test code = 3256) Neg Negative - Negati ve POCT U KETONE (test code = 3258) None Negative - Neg ative POCT U BLD (test code = 3257) Trace Negative - Negati ve [facility] URINALYSIS W/O SPECIFIC [id number] 18:58:00* Test Item Value Reference Range Interpretation Comme nts POCT PH U (test code = 3254) 8 mg/dl 5-8 POCT U LEUK EST (test code = 3263) Trace Negative - Negative POCT U NIT (test code = 3262) Neg Negative - Negati ve POCT U PROT (test code = 3259) Trace Negative - Negat rodo POCT U GLU (test code = 3256) Neg Negative - Negati ve POCT U KETONE (test code = 3258) None Negative - Neg ative POCT U BLD (test code = 3257) [facility] [id number] 18:58:00* Test Item Value Reference Range Interpretation Comme nts POCT PH U (test code = 3254) 8 mg/dl 5-8 POCT U LEUK EST (test code = 3263) Trace Negative - Negative POCT U NIT (test code = 3262) Neg Negative - Negati ve POCT U PROT (test code = 3259) Trace Negative - Negat rodo POCT U GLU (test code = 3256) Neg Negative - Negati ve POCT U KETONE (test code = 3258) None Negative - Neg ative POCT U BLD (test code = 3257) Trace Negative - Negati ve [facility] URINALYSIS W/O SPECIFIC [id number] 18:58:00* Test Item Value Reference Range Interpretation Comme nts POCT PH U (test code = 3254) 8 mg/dl 5-8 POCT U LEUK EST (test code = 3263) Trace Negative - Negative POCT U NIT (test code = 3262) Neg Negative - Negati ve POCT U PROT (test code = 3259) Trace Negative - Negat rodo POCT U GLU (test code = 3256) Neg Negative - Negati ve POCT U KETONE (test code = 3258) None Negative - Neg ative POCT U BLD (test code = 3257) Trace Negative - Negati ve [facility] URINALYSIS W/O SPECIFIC [id number] 18:58:00* Test Item Value Reference Range Interpretation Comme nts POCT PH U (test code = 3254) 8 mg/dl 5-8 POCT U LEUK EST (test code = 3263) Trace Negative - Negative POCT U NIT (test code = 3262) Neg Negative - Negati ve POCT U PROT (test code = 3259) Trace Negative - Negat rodo POCT U GLU (test code = 3256) Neg Negative - Negati ve POCT U KETONE (test code = 3258) None Negative - Neg ative POCT U BLD (test code = 3257) Trace Negative - Negati ve [facility] URINALYSIS W/O SPECIFIC [id number] 18:58:00* Test Item Value Reference Range Interpretation Comme nts POCT PH U (test code = 3254) 8 mg/dl 5-8 POCT U LEUK EST (test code = 3263) Trace Negative - Negative POCT U NIT (test code = 3262) Neg Negative - Negati ve POCT U PROT (test code = 3259) Trace Negative - Negat rodo POCT U GLU (test code = 3256) Neg Negative - Negati ve POCT U KETONE (test code = 3258) None Negative - Neg ative POCT U BLD (test code = 3257) Trace Negative - [facility] [id number] 18:58:00* Test Item Value Reference Range Interpretation Comme nts POCT PH U (test code = 3254) 8 mg/dl 5-8 POCT U LEUK EST (test code = 3263) Trace Negative - Negative POCT U NIT (test code = 3262) Neg Negative - Negati ve POCT U PROT (test code = 3259) Trace Negative - Negat rodo POCT U GLU (test code = 3256) Neg Negative - Negati ve POCT U KETONE (test code = 3258) None Negative - Neg ative POCT U BLD (test code = 3257) Trace Negative - Negati ve [facility]
[2024-01-16] MEDS ORDERED: ONDANSETRON 4 MG/2 ML VIAL ONE (21:00)
[2024-01-16] MEDS ORDERED: NA CHLORIDE 0.9% 1,000 ML ONE (21:00)
[2024-01-16 21:07] LABS: Absolute Basophils 0.1 K/uL (0-0.5); Absolute Eosinophils 0.1 K/uL (0-0.5); Absolute Lymphocytes (CBC) 2.2 K/uL (0.7-4.9); Absolute Monocytes 0.6 K/uL (0.1-1.3); Absolute Neutrophil 6.8 K/uL (1.8-8.0); Basophils % 0.7 % (0-1.3); Eosinophils % 0.8 % (0-4.4); Hematocrit 44.4 % (36.0-45.0); Hemoglobin 15.2 g/dL (12.0-15.0); Lymphocytes % 22.4 % (15.3-44.8); MCH 30.1 pg (27.0-35.0); MCHC 34.3 g/dL (32.0-36.0); MCV 87.8 fL (80-100); Monocytes % 5.7 % (3.3-12.3); Neutrophils % 70.4 % (41.7-73.7); Nucleated Red Blood Cells % 0.1 % (0-0); Platelets 291 thou/uL (152-406); RBC Red Blood Cell Count 5.05 M/uL (3.86-4.86); Red Cell Distribution Width 13.4 % (12.1-15.2)
[2024-01-16 21:13] LABS: PT Prothrombin Time 11.9 SECONDS (9.4-12.5); Protime INR 1.06
[2024-01-16 21:24] LABS: Albumin 5.2 g/dL (3.4-5.0); Albumin/Globulin Ratio 1.2 (1.1-1.8); Anion Gap 9.9 mEq/L (5.0-15.0); Bilirubin Total 0.5 mg/dL (0.2-1.0); Globulin 4.3 g/dL (2.3-3.5); Potassium 3.9 mEq/L (3.5-5.1); Protein, Total 9.5 g/dL (6.4-8.2)
[2024-01-16 21:47] LABS: Specific Gravity 1.007 (1.005-1.030); Sqamous Epithelial <5 /HPF (None Seen); Urine Bacteria None Seen /HPF (<20); Urine Bilirubin NEGATIVE (Negative); Urine Blood Negative (Negative); Urine Clarity Clear (Clear); Urine Color Colorless (Yellow); Urine Crystals Unidentified Few /HPF (None Seen); Urine Culture Reflex Order NOT NEEDED; Urine Glucose NEGATIVE (Negative); Urine Ketones 1+ (Negative); Urine Microscopic Reflex YN ORDER UMIC; Urine Mucus Slight /HPF (None Seen); Urine Nitrite NEGATIVE (Negative); Urine Protein NEGATIVE (Negative); Urine RBC <5 /HPF (None Seen); Urine Urobilinogen Normal (Normal); Urine WBC <5 /HPF (<5); Urine pH 5.5 (5.0-7.0)
--- NOTE | 2024-01-16 23:48 | EDPHYS ---
Physician Documentation [facility] Name: Florina Hernandez Age: 23 yrs Sex: Female : 2000 Arrival Date: 01/16/2024 Time: 19:57 Bed 5 Private MD: ED Physician Donna Loaiza HPI: 01/15 20:46 This 23 yrs old Female presents to ER via Ambulatory with complaints of Vomiting, sp3 Chills. 20:46 23-year-old female with history of anxiety, bipolar disease presents to the ED with sp3 epigastric pain and copious amounts of vomiting after taking "4 shots" on empty stomach due to her "going through some stuff". Patient is no longer having emesis but states that her emesis was blood-tinged without coretta blood. She denies any significant diarrhea, lower abdominal pain, bleeding anywhere else, chest pain, shortness of breath, fever, URI symptoms, syncope, near syncope, rash, or any other signs or symptoms on ROS this time.. ENGINEERING AID: 20:17 LMP 01/13/2024, unknown tm6 Historical: - Allergies: 20:20 PROPOFOL; tm6 - PMHx: 20:20 ADD/ADHD; Anxiety; Bipolar disorder; Depression; vaginal bleeding; tm6 - PSHx: 20:20 throat sx; tm6 - Immunization history:: Client reports having NOT received the Covid vaccine. - Infectious Disease History:: Denies. - Social history:: Smoking status: Reported history of juuling and/or vaping. Patient uses alcohol, but reports only rare drinking. street drugs, marijuana. ROS: 20:49 Constitutional: Negative for fever, chills, and weight loss, Eyes: Negative for injury, sp3 pain, redness, and discharge, ENT: Negative for injury, pain, and discharge, Neck: Negative for injury, pain, and swelling, Cardiovascular: Negative for chest pain, palpitations, and edema, Respiratory: Negative for shortness of breath, cough, wheezing, and pleuritic chest pain, Back: Negative for injury and pain, MS/Extremity: Negative for injury and deformity, Skin: Negative for injury, rash, and discoloration, Neuro: Negative for headache, weakness, numbness, tingling, and seizure, Psych: Negative for depression, anxiety, suicide ideation, homicidal ideation, and hallucinations, Allergy/Immunology: Negative for hives, rash, and allergies, Endocrine: Negative for neck swelling, polydipsia, polyuria, polyphagia, and marked weight changes, Hematologic/Lymphatic: Negative for swollen nodes, abnormal bleeding, and unusual bruising, 20:49 All other systems are negative, Exam: 20:49 Constitutional: This is a well developed, well nourished patient who is awake, alert, sp3 and in no acute distress. Head/Face: Normocephalic, atraumatic. Eyes: Pupils equal round and reactive to light, extra-ocular motions intact. Lids and lashes normal. Conjunctiva and sclera are non-icteric and not injected. Cornea within normal limits. Periorbital areas with no swelling, redness, or edema. Neck: Trachea midline, no thyromegaly or masses palpated, and no cervical lymphadenopathy. Supple, full range of motion without nuchal rigidity, or vertebral point tenderness. No Meningismus. Chest/axilla: Normal chest wall appearance and motion. Nontender with no deformity. No lesions are appreciated. Cardiovascular: Regular rate and rhythm with a normal S1 and S2. No gallops, murmurs, or rubs. Normal PMI, no JVD. No pulse deficits. Respiratory: Lungs have equal breath sounds bilaterally, clear to auscultation and percussion. No rales, rhonchi or wheezes noted. No increased work of breathing, no retractions or nasal flaring. Back: No spinal tenderness. No costovertebral tenderness. Full range of motion. Skin: Warm, dry with normal turgor. Normal color with no rashes, no lesions, and no evidence of cellulitis. MS/ Extremity: Pulses equal, no cyanosis. Neurovascular intact. Full, normal range of motion. Neuro: Awake and alert, GCS 15, oriented to person, place, time, and situation. Cranial nerves II-XII grossly intact. Motor strength 5/5 in all extremities. Sensory grossly intact. Cerebellar exam normal. Normal gait. Psych: Awake, alert, with orientation to person, place and time. Behavior, mood, and affect are within normal limits. 20:49 Abdomen/GI: Moderate gastric pain to palpation without peritoneal signs, rebound or guarding., Vital Signs: 20:17 BP 118 / 103; Pulse 88; Resp 22; Temp 97.5(O); Pulse Ox 100% on R/A; MAP 109 mmHg; tm6 Weight 43.09 kg; Height 4 ft. 6 in. ; Pain 8/10; 21:30 BP 111 / 87; Pulse 62; Resp 18; Pulse Ox 100% ; cp4 23:04 BP 99 / 65; Pulse 62; Resp 18; Pulse Ox 100% on R/A; kj2 01/16 00:33 BP 101 / 68; Pulse 64; Resp 18; Pulse Ox 100% ; cp4 01/15 20:17 Body Mass Index 22.08 (43.09 kg, 139.7 cm) tm6 01/15 20:17 Pain Scale: Adult tm6 MDM: 01/15 20:20 Patient medically screened. sp3 20:49 Data reviewed: vital signs, nurses notes, lab test result(s), radiologic studies. ED sp3 course: 21-year-old female with epigastric abdominal pain with emesis blood in sputum after drinking alcohol. Demential diagnosis includes gastritis, foodborne illness, biliary pathology, pancreatitis, colitis, other abdominal pathology. I am not highly spacious of pathology, LINEN [employer]LLER pathology, or any other critical process. Workup will include laboratory values, IV fluids, ondansetron IV, CT scan of the abdomen pelvis and if workup is negative we will safely discharge patient home to PCP follow-up. I have counseled her on alcohol intake.. 23:46 ED course: CT scan demonstrates no significant findings pertinent to patient's sp3 presentation. Given AST ALT and very mild bump in lipase, patient's symptoms are likely due to heavy alcohol intake. Vital signs are normal and patient is not having any active emesis. Will safely discharge patient home at this time with diagnosis alcoholic gastritis.. 01/15 20:45 Order name: CBC with Diff; Complete Time: 21:58 sp3 01/15 20:45 Order name: CMP; Complete Time: 21:58 sp3 01/15 20:45 Order name: Lipase; Complete Time: 21:58 sp3 01/15 20:45 Order name: Test, Urine; Complete Time: 21:58 sp3 01/15 20:45 Order name: Urinalysis w/ reflexes; Complete Time: 21:58 sp3 01/15 20:45 Order name: PT-INR; Complete Time: 21:58 sp3 01/15 20:45 Order name: CT Abd/Pelvis - IV Contrast Only sp3 01/15 20:45 Order name: IV Saline Lock; Complete Time: 21:03 sp3 01/15 20:45 Order name: Labs collected and sent; Complete Time: 21:03 sp3 Administered Medications: 21:03 Drug: NS 0.9% IV 1000 ml IV at 1 bolus Per protocol; 1000 mL bolus Route: IV; Rate: 1 cp4 bolus; Site: right antecubital; 22:10 Follow up: Response: No adverse reaction; IV Status: Completed infusion cp4 21:03 Drug: Ondansetron IVP 4 mg IVP once; over 2 minutes Route: IVP; Site: right antecubital;cp4 21:30 Follow up: Response: No adverse reaction cp4 Disposition Summary: 01/16/24 23:47 Discharge Ordered Notes: Location: Home sp3 Condition: Stable sp3 Diagnosis - Alcoholic gastritis sp3 Followup: sp3 - With: Private Physician - When: Upon discharge from the Emergency Department - Reason: Continuance of care Discharge Instructions: - Discharge Summary Sheet sp3 - Gastritis, Adult sp3 Forms: - Medication Reconciliation Form sp3 - Antibiotic Education sp3 - Prescription Opioid Use sp3 - Patient Portal Instructions sp3 - Leadership Thank You Letter sp3 Prescriptions: - Protonix 40 mg Oral Tablet - take 1 tablet ORAL route once daily; 30 tablet; Refills: 0, Product Selection sp3 Permitted - Zofran 4 mg Oral Tablet - take 1 tablet ORAL route every 12 hours As needed; 20 tablet; Refills: 0, sp3 Product Selection Permitted Signatures: Dispatcher [employer] Donna Jaemson MD MD sp3 Vale Walters 4 Erasmo Espinal RN RN tm6
--- NOTE | 2024-01-16 23:48 | ER ---
Nurse's Notes [facility] Name: Florina Hernandez Age: 23 yrs Sex: Female : 2000 Arrival Date: 01/16/2024 Time: 19:57 Bed 5 Private MD: Diagnosis: Alcoholic gastritis Presentation: 01/15 20:18 Chief complaint: Patient states: starting about an hour ago with nausea, vomiting, and tm6 diarrhea. Blood in my vomit. Entire abdomen hurts. Having a hard time catching my breath. Coronavirus screen: Client denies travel out of the [place] in the last 14 days. Ebola Screen: Patient negative for fever greater than or equal to 101.5 degrees Fahrenheit, and additional compatible Ebola Virus Disease symptoms Patient denies exposure to infectious person. Patient denies travel to an Ebola-affected area in the 21 days before illness onset. No symptoms or risks identified at this time. Initial Sepsis Screen: Does the patient meet any 2 criteria? No. Patient's initial sepsis screen is negative. Does the patient have a suspected source of infection? No. Patient's initial sepsis screen is negative. Risk Assessment: Do you want to hurt yourself or someone else? Patient reports no desire to harm self or others. Onset of symptoms was January 16, 2024 at 19:20. 20:18 Method Of Arrival: Ambulatory tm6 20:18 Acuity: MAAME 3 tm6 Triage Assessment: 20:20 General: Appears distressed, Behavior is cooperative. Pain: Complains of pain in tm6 abdomen Pain currently is 8 out of 10 on a pain scale. EENT: No signs and/or symptoms were reported regarding the EENT system. Neuro: Level of Consciousness is awake, alert, obeys commands, Oriented to person, place, time, situation. Cardiovascular: Patient's skin is warm and dry. Respiratory: Reports shortness of breath Airway is patent Respiratory effort is even, Respiratory pattern is regular, symmetrical. GI: Reports lower abdominal pain, upper abdominal pain, diarrhea, nausea, Pain is 8 out of 10 on a pain scale. vomiting, since an hour ago. : No signs and/or symptoms were reported regarding the genitourinary system. Derm: No signs and/or symptoms reported regarding the dermatologic system. Musculoskeletal: No signs and/or symptoms reported regarding the musculoskeletal system. RE ETCHER: 20:17 LMP 01/13/2024, unknown tm6 Historical: - Allergies: 20:20 PROPOFOL; tm6 - PMHx: 20:20 ADD/ADHD; Anxiety; Bipolar disorder; Depression; vaginal bleeding; tm6 - PSHx: 20:20 throat sx; tm6 - Immunization history:: Client reports having NOT received the Covid vaccine. - Infectious Disease History:: Denies. - Social history:: Smoking status: Reported history of juuling and/or vaping. Patient uses alcohol, but reports only rare drinking. street drugs, marijuana. Screenin:03 [facility] ED Fall Risk Assessment (Adult) History of falling in the last 3 months, cp4 including since admission No falls in past 3 months (0 pts) Confusion or Disorientation No (0 pts) Intoxicated or Sedated No (0 pts) Impaired Gait No (0 pts) Mobility Assist Device Used No (0 pt) Altered Elimination No (0 pt) Score/Fall Risk Level 0 - 2 = Low Risk Oriented to surroundings, Maintained a safe environment, Assessed \T\ reinforced patient's understanding of fall precautions, Hourly rounding (assess needs \T\ fall precautionary measures) done. Abuse screen: Denies threats or abuse. Nutritional screening: No deficits noted. Tuberculosis screening: No symptoms or risk factors identified. Assessment: 21:03 General: Appears in no apparent distress. uncomfortable, Behavior is calm, cooperative, cp4 appropriate for age. Pain: Denies pain. Neuro: Level of Consciousness is awake, alert, obeys commands, Oriented to person, place, time, situation. Cardiovascular: Patient's skin is warm and dry. Respiratory: Airway is patent Respiratory effort is even, unlabored. GI: Abdomen is flat, non-distended, Bowel sounds present X 4 quads. Reports diarrhea, nausea, vomiting. : No signs and/or symptoms were reported regarding the genitourinary system. EENT: No signs and/or symptoms were reported regarding the EENT system. Derm: No signs and/or symptoms reported regarding the dermatologic system. Musculoskeletal: No signs and/or symptoms reported regarding the musculoskeletal system. 22:00 Reassessment: Patient appears in no apparent distress at this time. Patient and/or cp4 family updated on plan of care and expected duration. Pain level reassessed. Patient is alert, oriented x 3, equal unlabored respirations, skin warm/dry/pink. 23:04 Reassessment: Patient appears in no apparent distress at this time. Patient and/or kj2 family updated on plan of care and expected duration. Pain level reassessed. Patient is alert, oriented x 3, equal unlabored respirations, skin warm/dry/pink. 01/16 00:00 Reassessment: Patient appears in no apparent distress at this time. Patient and/or cp4 family updated on plan of care and expected duration. Pain level reassessed. Patient is alert, oriented x 3, equal unlabored respirations, skin warm/dry/pink. Vital Signs: 01/15 20:17 BP 118 / 103; Pulse 88; Resp 22; Temp 97.5(O); Pulse Ox 100% on R/A; MAP 109 mmHg; tm6 Weight 43.09 kg; Height 4 ft. 6 in. ; Pain 8/10; 21:30 BP 111 / 87; Pulse 62; Resp 18; Pulse Ox 100% ; cp4 23:04 BP 99 / 65; Pulse 62; Resp 18; Pulse Ox 100% on R/A; kj2 01/16 00:33 BP 101 / 68; Pulse 64; Resp 18; Pulse Ox 100% ; cp4 01/15 20:17 Body Mass Index 22.08 (43.09 kg, 139.7 cm) tm6 01/15 20:17 Pain Scale: Adult tm6 ED Course: 01/15 20:00 Patient arrived in ED. mr 20:17 Donna Loaiza MD is Attending Physician. sp3 20:20 Triage completed. tm6 20:20 Arm band placed on right wrist. tm6 20:39 Vale Walters is Primary Nurse. cp4 21:03 Bed in low position. Call light in reach. Side rails up X2. cp4 21:03 No provider procedures requiring assistance completed. Initial lab(s) drawn, by , elvia sent to lab. Urine collected: clean catch specimen, clear. Inserted saline lock: 22 gauge in right antecubital area, using aseptic technique. Blood collected. Flushed with 10 mL NS 22:35 CT Abd/Pelvis - IV Contrast Only In Process Unspecified. EDMS 01/16 00:33 Provided Education on: gastritis. cp4 Administered Medications: 01/15 21:03 Drug: NS 0.9% IV 1000 ml IV at 1 bolus Per protocol; 1000 mL bolus Route: IV; Rate: 1 cp4 bolus; Site: right antecubital; 22:10 Follow up: Response: No adverse reaction; IV Status: Completed infusion cp4 21:03 Drug: Ondansetron IVP 4 mg IVP once; over 2 minutes Route: IVP; Site: right antecubital;cp4 21:30 Follow up: Response: No adverse reaction cp4 Medication: 21:03 VIS not applicable for this client. cp4 Outcome: 23:47 Discharge ordered by MD. [email or web address] 00:33 Discharged to home ambulatory, cp4 Condition: stable Discharge instructions given to patient, Instructed on discharge instructions, follow up and referral plans. medication usage, Demonstrated understanding of instructions, follow-up care, medications, Prescriptions given X 2, 00:34 Patient left the ED. cp4 Signatures: Dispatcher [employer] EDMS Balbina Adams, Reg Cruz mr Donna Loaiza MD MD sp3 Vale Walters cp4 Erasmo Espinal RN RN tm6 Luz Marina Llanos RN RN kj2
--- NOTE | 2024-01-17 00:49 | RAD REPORT ---
EXAM: CT Abdomen and Pelvis With Intravenous Contrast CLINICAL HISTORY: The patient is 23 years old and is Female; ABD PAIN TECHNIQUE: Axial computed tomography images of the abdomen and pelvis with intravenous contrast. Sagittal and coronal reformatted images were created and reviewed. This CT exam was performed using one or more of the following dose reduction techniques: automated exposure control, adjustmen t of the mA and/or kV according to patient size, and/or use of iterative reconstruction technique. COMPARISON: No relevant prior studies available. FINDINGS: Lung bases: Unremarkable. No mass. No consolidation. ABDOMEN: Liver: Unremarkable. No mass. Gallbladder and bile ducts: Unremarkable. No calcified stones. No ductal dilation. Pancreas: Unremarkable. No mass. No ductal dilation. Spleen: Unremarkable. No splenomegaly. Adrenals: Unremarkable. No mass. Kidneys and ureters: Unremarkable. No solid mass. No hydronephrosis. Stomach and bowel: Unremarkable. No obstruction. No mucosal thickening. PELVIS: Appendix: No findings to suggest acute appendicitis. Bladder: Unremarkable. Reproductive: 2.1 cm round heterogeneously hyperdense likely enhancing left ovarian/adnexal lesio n. ABDOMEN and PELVIS: Intraperitoneal space: Unremarkable. No free air. No significant fluid collection. Bones/joints: No acute fracture. No dislocation. Soft tissues: Unremarkable. Vasculature: Unremarkable. No abdominal aortic aneurysm. Lymph nodes: Unremarkable. No enlarged lymph nodes. IMPRESSION: 2.1 cm round heterogeneously hyperdense likely enhancing left ovarian/adnexal lesion. Consider pe lvic ultrasound for further evaluation. Electronically signed by: Mario Álvarez MD 01/16/2024 11:41 PM CDT 8 Due to temporary technical issues with the [employer] reporting system, reports are being davy d by the in-house radiologist without review as a courtesy to ensure prompt reporting the interpreting radiologist is fully responsible for the content of the report. Transcribed Date/Time: 01/17/2024 12:49 AM
[2024-01-17 17:09] VITALS: TEMP 97.5; O2SAT 100
[2024-01-17 17:15] VITALS: BP 101/68
== END 2024-01-17 00:34 | disposition home or self-care (01) ==
LOC: ER 19:57
DX: K29.20 Alcoholic gastritis without bleeding (principal); F31.9 Bipolar disorder, unspecified
CPT/HCPCS: 36415; 74177; 80053; 81001; 81025; 83690; 85025; 85610; 96361; 96374; 99284; J2405; J7030; Q9967